=== PATIENT | male | born 1940 | race Caucasian/White ===

== ENCOUNTER 2017-06-20 21:00 | Inpatient (IN) | payer OTHER, MEDICARE ==
[~2017-06-20] VITALS: Ht 175.3 cm; Wt 83.0 kg
--- NOTE | 2017-06-20 20:32 | PD.CONS ---
HPI Service neurosurgeon Consult Requested By Trauma surgeon Reason for Consult T2 fracture Primary Care Physician Non-Staff History of Present Illness Mr Lima is a 76-year-old male who fell from a ladder landing on the ladder with his left side. No loss of consciousness. He did not suffer a significant head injury. No seizure activity reported. No tongue biting. No incontinence of stool or urine. He was evaluated in outside hospital found to have an acute T2 fracture and 3 left-sided rib fractures. He was moving well both upper and lower extremities. No focal weakness. No sensory loss. No problems controlling his sphincters. He was transferred to [place] for definitive care. Upon arrival, he was evaluated by the trauma surgeon. CT was done. Neurosurgical consultation was requested Review of Systems Constitutional: DENIES: Diaphoretic episodes, Fatigue, Fever, Weight gain, Weight loss, Chills, Dizziness, Change in appetite, Night Sweats Endocrine: DENIES: Heat/cold intolerance, Polydipsia, Polyuria, Polyphagia Eyes: DENIES: Blurred vision, Diplopia, Eye inflammation, Eye pain, Vision loss , Photosensitivity, Double Vision Ears, nose, mouth, throat: DENIES: Tinnitus, Hearing loss, Vertigo, Nasal discharge, Oral lesions, Throat pain, Hoarseness, Ear Pain, Running Nose, Epistaxis, Sinus Pain, Toothache, Odynophagia Respiratory: DENIES: Apneas, Cough, Snoring, Wheezing, Hemoptysis, Sputum production, Shortness of breath Cardiovascular: COMPLAINS OF: Chest pain (Left musculoskeletal) Gastrointestinal: DENIES: Abdominal pain, Black stools, Bloody stools, Constipation, Diarrhea, Nausea, Vomiting, Difficulty Swallowing, Anorexia Genitourinary: DENIES: Sexual dysfunction, Urinary frequency, Urinary incontinence, Urgency, Hematuria, Dysuria, Nocturia, Penile Discharge, Testicular Pain, Testicular Swelling Musculoskeletal: COMPLAINS OF: Back pain, DENIES: Joint pain, Muscle aches, Stiffness, Joint Swelling, Neck pain Integumentary: DENIES: Abnormal pigmentation, Nail changes, Pruritus, Rash Hematologic/lymphatic: COMPLAINS OF: Bruising, DENIES: Lymphadenopathy Immunologic/allergic: DENIES: Eczema, Urticaria Neurologic: DENIES: Abnormal gait, Headache, Localized weakness, Paresthesias, Seizures, Speech Problems, Tremor, Poor Balance Psychiatric: DENIES: Anxiety, Confusion, Mood changes, Depression, Hallucinations, Agitation, Suicidal Ideation, Homicidal Ideation, Delusions Past Family Social History Allergies: Coded Allergies: No Known Allergies (Unverified , 06/20/17) Past Medical History Diabetes and hypercholesterolemia Past Surgical History He denies any significant surgical his Reported Medications simvastatin Active Ordered Medications Current Medications Sodium Chloride (NS Flush) 2 ml UNSCH PRN IV FLUSH FLUSH AFTER USING IV ACCESS Last administered on 06/22/17 21:05; Start 06/20/17 at 21:30 Hydromorphone HCl (Dilaudid Pf Inj) 1 mg Q3H PRN IV PUSH BREAKTHROUGH PAIN Last administered on 06/24/17at 00:08; Start 06/20/17 at 21:45 Oxycodone HCl (Roxicodone) 5 mg Q3H PRN PO PAIN SCALE 1 TO 5 Last administered on 06/23/17 11:45; Start 06/20/17 at 21:30 Oxycodone HCl (Roxicodone) 10 mg Q3H PRN PO PAIN SCALE 6 TO 10 Last administered on 06/24/17at 12:41; Start 06/20/17 at 21:30 Enalaprilat (Vasotec Inj) 1.25 mg Q8H PRN IV PUSH SBP>180, DBP>95; Start at 21:30 Ondansetron HCl (Zofran Inj) 4 mg Q6H PRN IV PUSH NAUSEA OR VOMITING Last administered on 06/22/17at 14:02; Start 06/20/17 at 21:30 Enoxaparin Sodium (Lovenox Inj) 30 mg Q12H SQ Last administered on 06/24/17at 09: 39; Start 06/20/17 at 22:00 Docusate Sodium (Colace) 100 mg BID PO ; Start 06/21/17 at 09:00; Stop 06/21/17 at 09:00; Status DC Magnesium Hydroxide (Milk Of Magnesia Liq) 30 ml Q6H PRN PO CONSTIPATION Last administered on 06/21/17 09:17; Start 06/20/17 at 21:30 Miscellaneous Information 1 Q361D XX ; Start 06/20/17 at 21:30 Chlorhexidine Gluconate (Chlorhexidine 2% Cloth) 3 pack Taper DAILY@04 TOP Last administered on 06/23/17at 04:00; Start 06/21/17 at 04:00; Stop 06/17/18 at 03: 59 Chlorhexidine Gluconate (Chlorhexidine 2% Cloth) 3 pack UNSCH PRN TOP HYGIENIC CARE; Start 06/20/17 at 21:30 Dextrose (D50w (Vial) Inj) 50 ml UNSCH PRN IV PUSH HYPOGLYCEMIA-SEE COMMENTS; Start 06/20/17 at 21:30 Glucagon (Glucagon Inj) 1 mg UNSCH PRN OTHER HYPOGLYCEMIA-SEE COMMENTS; Start 06/20/17 at 21:30 Insulin Human Regular (NovoLIN R SUPPLEMENTAL SCALE) 1 ACHS SLIDING SCALE SQ Last administered on 06/22/17at 11:30; Start 06/21/17 at 08:00 Methocarbamol (Robaxin) 500 mg Q8HR PO Last administered on 06/24/17 12:41; Start 06/21/17 at 08:15 Lidocaine HCl (Lidoderm 5% Patch.12 Hr) 1 patch DAILY T-DERMAL Last administered on 06/24/17 09:39; Start 06/21/17 at 09:00 Senna/Docusate Sodium (Brandy-Colace) 1 tab BID PO Last administered on 06/24/17at 09:40; Start 06/21/17 at 09:00 Lactulose (Lactulose Liq) 30 ml DAILY PRN PO No BM in 2 days; Start 06/21/17 at 07:45 Polyethylene Glycol (Miralax) 17 gm DAILY PO Last administered on 06/22/17at 09: 58; Start 06/21/17 at 09:00 Amlodipine Besylate (Norvasc) 5 mg DAILY PO Last administered on 06/24/17 09:40 ; Start 06/21/17 at 09:00 Losartan Potassium (Cozaar) 25 mg DAILY PO Last administered on 06/24/17at 09:41 ; Start 06/21/17 at 09:00 Pantoprazole Sodium (Protonix) 20 mg DAILY PO Last administered on 06/24/17at 09: 40; Start 06/21/17 at 09:00 Pravastatin Sodium (Pravachol) 40 mg DAILY PO Last administered on 06/24/17 09: 41; Start 06/21/17 at 09:00 Citalopram Hydrobromide (CeleXA) 40 mg DAILY PO Last administered on 06/24/17 09:40; Start 06/21/17 at 09:00 Albuterol/ Ipratropium (Duoneb Neb) 1 ampule Q2HR NEB PRN NEB SHORTNESS OF BREATH Last administered on 06/22/17 04:34; Start 06/21/17 at 07:45 Albuterol/ Ipratropium (Duoneb Neb) 1 ampule Q4HR WHILE AWAKE NEB NEB Last administered on 06/24/17 08:22; Start 06/21/17 at 14:00; Stop 06/24/17 at 09:27; Status DC Sodium Chloride 1,000 ml @ 100 mls/hr Q10H IV Last administered on 06/24/17 02 :34; Start 06/22/17 at 12:00; Stop 06/24/17 at 09:25; Status DC Fentanyl (Duragesic 50 Mcg Patch.72 Hr) 1 patch Q3D T-DERMAL Last administered on 06/22/17 13:00; Start 06/22/17 at 13:00 Miscellaneous Information 1 Q3D T-DERMAL Last administered on 06/22/17at 13:00; Start 06/22/17 at 13:00 Gabapentin (Neurontin) 300 mg TID PO Last administered on 06/24/17 12:41; Start 06/23/17 at 13:00 Furosemide (Lasix Inj) 20 mg BID@09,18 IV PUSH ; Start 06/24/17 at 18:00; Stop at 09:01 Albuterol/ Ipratropium (Duoneb Neb) 1 ampule Q4HR NEB NEB Last administered on 06/24/17 11:21; Start 06/24/17 at 12:00 Family History Social History Patient is a smoker denies alcohol or illegal drug use Physical Exam Physical Exam Alert and oriented, in obvious pain Head is atraumatic normocephalic pupils equal round reactive to light extraocular movement intact sclera nonicteric conjunctiva pink Neck soft, trachea midline, no tenderness to cervical palpation Lungs clear to auscultation bilaterally, left chest wall tenderness Abdomen soft nontender nondistended Pelvis stable and nontender, femoral pulses palpable bilaterally No clubbing cyanosis or edema, distal pulses are palpable bilaterally Mood and affect are appropriate Cranial nerve examination: pupils to be equal, round and reactive to light. Extra-ocular movements are intact. Facial motor and sensory function are normal and symmetrical. Gross hearing appears intact. Sternocleidomastoid and trapezius muscles are symmetrical. Other cranial nerves are intact. Neck is soft and supple with a good range of motion without pain. Muscle strength is normal in all muscle groups of both upper and lower extremities. Sensory examination is intact to light touch and pin prick in both the upper and lower extremities. Deep tendon reflexes are symmetrical in both upper and lower extremities. There is a bilateral plantar flexion response. Cerebellar examination is unremarkable, without deficits. Attending Statement 76-year-old man who fell fracturing 3 left-sided ribs and T2 vertebral body I reviewed his radiological studies MRI Thoracic spine. compression fracture of the T3 superior endplate with prominent approximately 5 mm retropulsion of the posterior cortex. There is diffuse bone marrow edema in the T3 vertebral body. There is resultant complete effacement of the anterior thecal sac with flattening of the cervical cord. There is no abnormal cord signal at this level. ALIGNMENT: Normal. CORD: Subtle prominence of the central canal, approximately 1-2 mm, at C5- 7. Otherwise, no significant signal abnormality. T1-T2: Normal. T2-T3: The thecal sac has a normal diameter. No evidence of disc bulge or protrusion. T3-T4: The thecal sac has a normal diameter. No evidence of disc bulge or protrusion. T4-T5: The thecal sac has a normal diameter. No evidence of disc bulge or protrusion. T5-T6: The thecal sac has a normal diameter. No evidence of disc bulge or protrusion. T6-T7: The thecal sac has a normal diameter. No evidence of disc bulge or protrusion. T7-T8: The thecal sac has a normal diameter. No evidence of disc bulge or protrusion. T8-T9: The thecal sac has a normal diameter. No evidence of disc bulge or protrusion. T9-T10: The thecal sac has a normal diameter. No evidence of disc bulge or protrusion. T10-T11: The thecal sac has a normal diameter. No evidence of disc bulge or protrusion. T11-T12: The thecal sac has a normal diameter. No evidence of disc bulge or protrusion. T12-L1: The thecal sac has a normal diameter. No evidence of disc bulge or protrusion. MRI lumbar spine T12-L1: The thecal sac has a normal diameter. No evidence of disc bulge or protrusion. The neural foramina are patent bilaterally. L1-L2: The thecal sac has a normal diameter. No evidence of disc bulge or protrusion. The neural foramina are patent bilaterally. L2-L3: The thecal sac has a normal diameter. No evidence of disc bulge or protrusion. The neural foramina are patent bilaterally. L3-L4: Broad-based disc bulge slightly more prominent left posterior and posterior lateral measuring approximately 5 mm in depth. In addition, there is some ligamentum flavum/facet hypertrophy leftward and accommodation there is lateral recess and appears to compromise the nerve rootlets of L4 as they move laterally. Otherwise, the spinal canal and neural foramina are adequate. L4-L5: Bilateral facet hypertrophy. There is narrowing of the right neural foramina with obliteration of the epidural fat around the right L4 nerve root and likely compromise of the right L4 dermatome. Spinal canal and left neural foramina are adequate L5-S1: Predominantly right facet hypertrophy. Spinal canal and neural foramina remain patent CONCLUSION: 1. Multilevel degenerative disease with some loss of disc height disc desiccation from L1-2 through L4-5 with relative sparing at the lumbosacral junction. 2. Broad-based disc bulge at L3-4 slightly more prominent leftward. In combination with left-sided ligamentum flavum and facet hypertrophy, there is encroachment of the lateral recess which appears to compromise the left nerve rootlets of L4 as they move laterally. 3. Predominantly due to facet hypertrophy, narrowing the right neural foramen at L4-5 which appear severe enough to compromise the right L4 nerve root. 4. Spinal canal and neural foramina appear to be adequate all remaining levels. Continue neuro checks in a serial fashion. A follow-up upright radiological study is recommended. He does not have any focal neurological deficit or clinical evidence of myelopathy. I discussed with him the alternatives of treatment and explained to him that a surgical procedure should be a last resort. Recommend a stabilization of the thoracic spine with a TLSO brace. If there is further collapse of the vertebral body, he may need to undergo surgical procedure with an open reduction and internal fixation Pulmonary. Respiratory failure related to rib fractures, aggressive pulmonary toilette, nasotracheal suction, and breathing treatments with nebulizers. Renal. monitor closely urine output, BUN and creatinine Endocrine. Monitor serial Acu checks and SSI as needed in detail ID monitor for signs of infection Diabetic diet with regular insulin sliding scale before meals and at bedtime coverage Protonix for stress ulcer prophylaxis Jeff hose and SCD's for DVT prophylaxis. Caprini VTE Risk Assessment Caprini VTE Risk Assessment: Mod/High Risk (score >= 2) Caprini Risk Assessment Model Point Value = 1 Point Value = 2 Point Value = 3 Point Value = 5 Age 41-60 Minor surgery BMI > 25 kg/m2 Swollen legs Varicose veins or History of unexplained or recurrent spontaneous Oral contraceptives or hormone replacement Sepsis (< 1 month) Serious lung disease, including pneumonia (< 1 month) Abnormal pulmonary function Acute myocardial infarction Congestive heart failure (< 1 month) History of inflammatory bowel disease Medical patient at bed rest Age 61-74 Arthroscopic surgery Major open surgery (> 45 min) Laparoscopic surgery (> 45 min) Malignancy Confined to bed (> 72 hours) Immobilizing plaster cast Central venous access Age >= 75 History of VTE Family history of VTE Factor V Leiden Prothrombin [id number] Lupus anticoagulant Anticardiolipin antibodies Elevated serum homocysteine Heparin-induced thrombocytopenia Other congenital or acquired thrombophilia Stroke (< 1 month) Elective arthroplasty Hip, pelvis, or leg fracture Acute spinal cord injury (< 1 month) Prophylaxis Regimen Total Risk Factor Score Risk Level Prophylaxis Regimen 0-1 Low Early ambulation 2 Moderate Order ONE of the following: *Sequential Compression Device (SCD) *Heparin 5000 units SQ BID 3-4 Higher Order ONE of the following medications: *Heparin 5000 units SQ TID *Enoxaparin/Lovenox 40 mg SQ daily (WT < 150 kg, CrCl > 30 mL/min) *Enoxaparin/Lovenox 30 mg SQ daily (WT < 150 kg, CrCl > 10-29 mL/min) *Enoxaparin/Lovenox 30 mg SQ BID (WT < 150 kg, CrCl > 30 mL/min) AND/OR *Sequential Compression Device (SCD) 5 or more Highest Order ONE of the following medications: *Heparin 5000 units SQ TID (Preferred with Epidurals) *Enoxaparin/Lovenox 40 mg SQ daily (WT < 150 kg, CrCl > 30 mL/min) *Enoxaparin/Lovenox 30 mg SQ daily (WT < 150 kg, CrCl > 10-29 mL/min) *Enoxaparin/Lovenox 30 mg SQ BID (WT < 150 kg, CrCl > 30 mL/min) AND *Sequential Compression Device (SCD) Steve Vidal MD Jun 20, 2017 20:32
[~2017-06-20 21:00] MED LIST: AMLO5TAB2 PO; CITA40TA4 PO; LOSA25TA PO; NOVOINJ2 SQ; OMEP20TA93 PO; SIMV20TA PO
[2017-06-20 21:14] VITALS: BP 124/66; PULSE 96; RESP 19; TEMP 98.7; O2SAT 92
[2017-06-20] MEDS ORDERED: MISCELLANEOUS NURSING INFORMATION XX SCH (21:30)
[2017-06-20] MEDS ORDERED: GLUCAGON 1 MG/ML VIAL OTHER PRN (21:30)
[2017-06-20] MEDS ORDERED: MAGNESIUM HYDROXIDE SUSP 30 ML CUP PO PRN (21:30)
[2017-06-20] MEDS ORDERED: DEXTROSE 50% IN WATER 50 ML VIAL(D50) IV PUSH PRN (21:30)
[2017-06-20] MEDS ORDERED: CHLORHEXIDINE GLUCONATE 2 % 1 PACK (2 CLOTHS) TOP PRN (21:30)
[2017-06-20] MEDS ORDERED: ENALAPRILAT 1.25 MG/ML VIAL IV PUSH PRN (21:30)
[2017-06-20] MEDS ORDERED: ONDANSETRON HCL 4 MG/2 ML VIAL IV PUSH PRN (21:30)
--- NOTE | 2017-06-20 21:32 | HHI.HP ---
[facility] Service Critical Care Medicine Primary Care Physician Unknown Admission Diagnosis Diagnosis: Chief Complaint: Back pain Travel History International Travel<30 Days: No Contact w/Intl Traveler <30 Da: No Traveled to Known Affected Are: No History of Present Illness 76-year-old gentleman who fell from a ladder landing on the ladder with his left side. He was evaluated in outside hospital found to have an acute T2 fracture and 3 left-sided rib fractures. He was transferred to [place] for definitive care Review of Systems Constitutional: DENIES: Diaphoretic episodes, Fatigue, Fever, Weight gain, Weight loss, Chills, Dizziness, Change in appetite, Night Sweats Endocrine: DENIES: Heat/cold intolerance, Polydipsia, Polyuria, Polyphagia Eyes: DENIES: Blurred vision, Diplopia, Eye inflammation, Eye pain, Vision loss , Photosensitivity, Double Vision Ears, nose, mouth, throat: DENIES: Tinnitus, Hearing loss, Vertigo, Nasal discharge, Oral lesions, Throat pain, Hoarseness, Ear Pain, Running Nose, Epistaxis, Sinus Pain, Toothache, Odynophagia Respiratory: DENIES: Apneas, Cough, Snoring, Wheezing, Hemoptysis, Sputum production, Shortness of breath Cardiovascular: COMPLAINS OF: Chest pain (Left musculoskeletal) Gastrointestinal: DENIES: Abdominal pain, Black stools, Bloody stools, Constipation, Diarrhea, Nausea, Vomiting, Difficulty Swallowing, Anorexia Genitourinary: DENIES: Sexual dysfunction, Urinary frequency, Urinary incontinence, Urgency, Hematuria, Dysuria, Nocturia, Penile Discharge, Testicular Pain, Testicular Swelling Musculoskeletal: COMPLAINS OF: Back pain, DENIES: Joint pain, Muscle aches, Stiffness, Joint Swelling, Neck pain Integumentary: DENIES: Abnormal pigmentation, Nail changes, Pruritus, Rash Hematologic/lymphatic: COMPLAINS OF: Bruising, DENIES: Lymphadenopathy Immunologic/allergic: DENIES: Eczema, Urticaria Neurologic: DENIES: Abnormal gait, Headache, Localized weakness, Paresthesias, Seizures, Speech Problems, Tremor, Poor Balance Psychiatric: DENIES: Anxiety, Confusion, Mood changes, Depression, Hallucinations, Agitation, Suicidal Ideation, Homicidal Ideation, Delusions Past Family Social History Allergies: Coded Allergies: No Known Allergies (Unverified , 06/20/17) Past Medical History Diabetes and hypercholesterolemia Past Surgical History Patient denies any significant surgical history Reported Medications Patient takes insulin he is unsure of the dose and simvastatin Family History Reviewed and not relevant Social History Patient is a smoker denies alcohol and illegal drug use Physical Exam Vital Signs Vital Signs Date Time Temp Pulse Resp B/P (MAP) Pulse Ox O2 Delivery O2 Flow Rate FiO2 06/20/17 21:25 Nasal Cannula 2.00 Physical Exam Alert and oriented, in obvious pain but no real distress Head is atraumatic normocephalic pupils equal round reactive to light extraocular movement intact sclera nonicteric conjunctiva pink Neck soft, trachea midline, no tenderness to cervical palpation Lungs clear to auscultation bilaterally, left chest wall tenderness Abdomen soft nontender nondistended Pelvis stable and nontender, femoral pulses palpable bilaterally No clubbing cyanosis or edema, distal pulses are palpable bilaterally Mood and affect are appropriate Cranial nerves II through XII appear grossly intact Caprini VTE Risk Assessment Caprini VTE Risk Assessment: Mod/High Risk (score >= 2) Caprini Risk Assessment Model Point Value = 1 Point Value = 2 Point Value = 3 Point Value = 5 Age 41-60 Minor surgery BMI > 25 kg/m2 Swollen legs Varicose veins or History of unexplained or recurrent spontaneous Oral contraceptives or hormone replacement Sepsis (< 1 month) Serious lung disease, including pneumonia (< 1 month) Abnormal pulmonary function Acute myocardial infarction Congestive heart failure (< 1 month) History of inflammatory bowel disease Medical patient at bed rest Age 61-74 Arthroscopic surgery Major open surgery (> 45 min) Laparoscopic surgery (> 45 min) Malignancy Confined to bed (> 72 hours) Immobilizing plaster cast Central venous access Age >= 75 History of VTE Family history of VTE Factor V Leiden Prothrombin [id number] Lupus anticoagulant Anticardiolipin antibodies Elevated serum homocysteine Heparin-induced thrombocytopenia Other congenital or acquired thrombophilia Stroke (< 1 month) Elective arthroplasty Hip, pelvis, or leg fracture Acute spinal cord injury (< 1 month) Prophylaxis Regimen Total Risk Factor Score Risk Level Prophylaxis Regimen 0-1 Low Early ambulation 2 Moderate Order ONE of the following: *Sequential Compression Device (SCD) *Heparin 5000 units SQ BID 3-4 Higher Order ONE of the following medications: *Heparin 5000 units SQ TID *Enoxaparin/Lovenox 40 mg SQ daily (WT < 150 kg, CrCl > 30 mL/min) *Enoxaparin/Lovenox 30 mg SQ daily (WT < 150 kg, CrCl > 10-29 mL/min) *Enoxaparin/Lovenox 30 mg SQ BID (WT < 150 kg, CrCl > 30 mL/min) AND/OR *Sequential Compression Device (SCD) 5 or more Highest Order ONE of the following medications: *Heparin 5000 units SQ TID (Preferred with Epidurals) *Enoxaparin/Lovenox 40 mg SQ daily (WT < 150 kg, CrCl > 30 mL/min) *Enoxaparin/Lovenox 30 mg SQ daily (WT < 150 kg, CrCl > 10-29 mL/min) *Enoxaparin/Lovenox 30 mg SQ BID (WT < 150 kg, CrCl > 30 mL/min) AND *Sequential Compression Device (SCD) Assessment and Plan Assessment and Plan 76-year-old man who fell fracturing 3 left-sided ribs and T2 vertebral body -Admit to trauma service for pain control and pulmonary toilet -Dr. Vidal has been consulted from neurosurgery to evaluate a T2 fracture -We will maintain patient in bed rest -Diabetic diet with regular insulin sliding scale before meals and at bedtime coverage -Patient's is bringing his list of home medications and will resume once confirmed Fritz Fritz MD Jun 20, 2017 21:32
[2017-06-20] MEDS: ENOXAPARIN SODIUM 30 MG/0.3 ML SYRINGE SQ SCH (21:53)
[2017-06-20 23:25] VITALS: BP 112/85; PULSE 91; RESP 19; TEMP 98; O2SAT 93
[2017-06-21] VITALS (8 sets, daily range): BP systolic 98–129; BP diastolic 54–77; PULSE 76–91; RESP 20; TEMP 97.2–98.4; O2SAT 85–95
[2017-06-21] MEDS: CHLORHEXIDINE GLUCONATE 2 % 1 PACK (2 CLOTHS) TOP SCH ×2 (04:00→21:31)
--- NOTE | 2017-06-21 06:45 | RADRPT ---
EXAM DATE/TIME: 06/21/2017 06:00 [facility] COMPARISON: No previous studies available for comparison. INDICATIONS : Fell off ladder yesterday and hit left side on ladder, pain left chest, back and ribs MEDICAL HISTORY : Hypertension. SURGICAL HISTORY : Abdominal aortic aneurysm repair. ENCOUNTER: Subsequent ACUITY: 2 days PAIN SCORE: 10/10 LOCATION: Left chest FINDINGS: Single AP view of the chest. Lungs are grossly clear. No evidence of pleural effusion or pneumothorax . Cardiomediastinal silhouette within normal limits. CONCLUSION: No acute cardiopulmonary disease identified. Pascual Ramires MD on June 21, 2017 at 6:41 Board Certified Radiologist. This report was verified electronically.
[2017-06-21] MEDS ORDERED: RESP: ALBUTEROL 2.5 MG/IPRATROPIUM 0.5 MG NEB (PRN) NEB (07:45)
[2017-06-21] MEDS: INSULIN NovoLIN REGULAR SUPPLEMENTAL SCALE SQ SCH ×4 (08:00→21:00)
[2017-06-21] MEDS: METHOCARBAMOL 500 MG TAB PO SCH ×3 (08:15→21:31)
[2017-06-21] MEDS ORDERED: DOCUSATE SODIUM 100 MG CAP PO SCH (09:00)
[2017-06-21] MEDS: LIDOCAINE HCL 5% PATCH T-DERMAL SCH (09:00)
[2017-06-21] MEDS: POLYETHYLENE GLYCOL 17 GM PKG PO SCH (09:00)
[2017-06-21] MEDS: LOSARTAN 25 MG TAB PO SCH (09:18)
[2017-06-21] MEDS: DOCUSATE SODIUM 50 MG/SENNA 8.6 MG TAB PO SCH ×2 (09:19→21:31)
[2017-06-21] MEDS: CITALOPRAM HYDROBROMIDE 40 MG TAB PO SCH (09:19)
[2017-06-21] MEDS: PRAVASTATIN SOD 40 MG TAB PO SCH (09:19)
[2017-06-21] MEDS: PANTOPRAZOLE SOD 20 MG DELAYED RELEASE TAB PO SCH (09:19)
[2017-06-21] MEDS: amLODIPine BESYLATE 5 MG TAB PO SCH (09:19)
[2017-06-21] MEDS: ENOXAPARIN SODIUM 30 MG/0.3 ML SYRINGE SQ SCH ×2 (09:20→21:31)
--- NOTE | 2017-06-21 10:15 | HHI.PR ---
Subjective Subjective Notes Complains of left rib pain Awaiting neurosurgery plan Objective Vitals/I&O Vital Signs Date Time Temp Pulse Resp B/P (MAP) Pulse Ox O2 Delivery O2 Flow Rate FiO2 06/21/17 09:24 Nasal Cannula 5.00 06/20/17 23:25 98.0 91 19 112/85 (94) 93 Radiology Last Impressions Chest X-Ray 06/21/17 0000 Signed Impressions: Service Date/Time: Wednesday, June 21, 2017 06:00 - CONCLUSION: No acute cardiopulmonary disease identified. Pascual Ramires MD Narrative Exam GENERAL: 76-year-old well-nourished, well developed male lying in bed in no acute distress. SKIN: Warm and dry. HEAD: Normocephalic. EYES: Pupils equal and round. No scleral icterus. ENT: No nasal bleeding or discharge. Mucous membranes pink and moist. NECK: Trachea midline. No JVD. CARDIOVASCULAR: Regular rate and rhythm. RESPIRATORY: No accessory muscle use. Lungs clear and diminished to auscultation. Breath sounds equal bilaterally. GASTROINTESTINAL: Abdomen soft, non-tender, nondistended. + BS. MUSCULOSKELETAL: Extremities without cyanosis, +1 RUE edema. MAEW, + perfused NEUROLOGICAL: Awake and alert. Normal speech. A/P Assessment and Plan [place]: Fell off a ladder from unknown height landing on his left side. No LOC. Transferred for trauma services. INJURIES: LEFT rib fxs LEFT pulmonary contusion T2 fx PMHx: DM, HLD, tobacco use, HTN, depression LEFT rib fxs, LEFT pulmonary contusion Supportive care Pulmonary toileting Pain control Bowel regimen 06/21: CXR- no acute dx T2 fx Neurosurgery consulted Awaiting plan of care MRI today Pain control Plan of care discussed with patient and family at bedside. Collaborating trauma Darline agrees with plan. Case management consulted to assist with discharge planning. Attending Statement patient seen at bedside, as above await nsg recs f/u MRI increased O2 Requirement obtain ABG, CXR- possible transfer to ICU for bipap and close resp monitoring Collaborating MD Comments The exam, history, and the medical decision-making described in the above note were completed with the assistance of the mid-level provider. I reviewed and agree with the findings presented. I attest that I had a [id number] encounter with the patient on the same day, and personally performed and documented my assessment and findings in the medical record. Lizett Jackson Jun 21, 2017 10:15 Marito Herrera MD Jun 25, 2017 13:25
[2017-06-21] MEDS: RESP: ALBUTEROL 2.5 MG/IPRATROPIUM 0.5 MG NEB (SCH) NEB ×3 (14:00→19:00)
--- NOTE | 2017-06-21 16:43 | RADRPT ---
EXAM DATE/TIME: 06/21/2017 15:13 [facility] COMPARISON: CT THORACIC SPINE W CONTRAST, June 20, 2017, 17:13. CT THORAX W CONTRAST, A pri2017, 17:13. INDICATIONS : Pain. MEDICAL HISTORY : Hypertension. Diabetes mellitus type 2. SURGICAL HISTORY : IVC Filter placement. Biliary stent. ENCOUNTER: Initial ACUITY: 1 day PAIN SCORE: 5/10 LOCATION: Paraspinal TECHNIQUE: Multiplanar multisequence MRI of the thoracic spine was performed. FINDINGS: VERTEBRA: Redemonstration of moderate compression fracture of the T3 superior endplate with promi nent approximately 5 mm retropulsion of the posterior cortex. There is diffuse bone marrow edema in t he T3 vertebral body. There is resultant complete effacement of the anterior thecal sac with flatteni ng of the cervical cord. There is no abnormal cord signal at this level. ALIGNMENT: Normal. CORD: Subtle prominence of the central canal, approximately 1-2 mm, at C5-7. Otherwise, no signif icant signal abnormality. T1-T2: Normal. T2-T3: The thecal sac has a normal diameter. No evidence of disc bulge or protrusion. T3-T4: The thecal sac has a normal diameter. No evidence of disc bulge or protrusion. T4-T5: The thecal sac has a normal diameter. No evidence of disc bulge or protrusion. T5-T6: The thecal sac has a normal diameter. No evidence of disc bulge or protrusion. T6-T7: The thecal sac has a normal diameter. No evidence of disc bulge or protrusion. T7-T8: The thecal sac has a normal diameter. No evidence of disc bulge or protrusion. T8-T9: The thecal sac has a normal diameter. No evidence of disc bulge or protrusion. T9-T10: The thecal sac has a normal diameter. No evidence of disc bulge or protrusion. T10-T11: The thecal sac has a normal diameter. No evidence of disc bulge or protrusion. T11-T12: The thecal sac has a normal diameter. No evidence of disc bulge or protrusion. T12-L1: The thecal sac has a normal diameter. No evidence of disc bulge or protrusion. CONCLUSION: 1. Moderate acute compression fracture of the T3 superior endplate with prominent, approximately 5 mm , retropulsion of the posterior cortex resulting in complete effacement of the anterior thecal sac an d flattening of the cervical cord without cord edema. 2. Subtle prominence of the central cervical cord canal at C5-7. This is generally considered benign. Followup MRI examination may be performed to document stability as clinically appropriate. Abdulkadir Marte MD on June 21, 2017 at 16:13 Board Certified Radiologist. This report was verified electronically.
--- NOTE | 2017-06-21 16:51 | RADRPT ---
EXAM DATE/TIME: 06/21/2017 15:13 [facility] COMPARISON: No previous studies available for comparison. INDICATIONS : Pain. MEDICAL HISTORY : Hypertension. Diabetes mellitus type 2. SURGICAL HISTORY : IVC Filter placement. Biliary stent. ENCOUNTER: Initial ACUITY: 1 day PAIN SCORE: 5/10 LOCATION: Paraspinal TECHNIQUE: Multiplanar multisequence MRI of the lumbar spine was performed without contrast. FINDINGS: The most caudal appearing lumbar vertebra is numbered as L5. Sagittal T1, T2 and inversion recovery images show multilevel degenerative disc disease with some los s of disc height and disc desiccation just about every lumbar level with relative sparing at the lumb osacral junction. There is a broad-based disc bulge at L3-4 which is slightly more prominent leftward measuring approximately 5 mm in depth. In combination with some posterior element hypertrophy, there is some encroachment on the left lateral recess at this level. Mild posterior element hypertrophy at L4-5 but the spinal canal appears to be adequate at this and all additional remaining lumbar levels. T12-L1: The thecal sac has a normal diameter. No evidence of disc bulge or protrusion. The neural foramina are patent bilaterally. L1-L2: The thecal sac has a normal diameter. No evidence of disc bulge or protrusion. The neural foramina are patent bilaterally. L2-L3: The thecal sac has a normal diameter. No evidence of disc bulge or protrusion. The neural foramina are patent bilaterally. L3-L4: Broad-based disc bulge slightly more prominent left posterior and posterior lateral measuring approxi mately 5 mm in depth. In addition, there is some ligamentum flavum/facet hypertrophy leftward and acc ommodation there is lateral recess and appears to compromise the nerve rootlets of L4 as they move la terally. Otherwise, the spinal canal and neural foramina are adequate. L4-L5: Bilateral facet hypertrophy. There is narrowing of the right neural foramina with obliteration of the epidural fat around the right L4 nerve root and likely compromise of the right L4 dermatome. Spinal canal and left neural foramina are adequate L5-S1: Predominantly right facet hypertrophy. Spinal canal and neural foramina remain patent CONCLUSION: 1. Multilevel degenerative disease with some loss of disc height disc desiccation from L1-2 through L 4-5 with relative sparing at the lumbosacral junction. 2. Broad-based disc bulge at L3-4 slightly more prominent leftward. In combination with left-sided li gamentum flavum and facet hypertrophy, there is encroachment of the lateral recess which appears to c ompromise the left nerve rootlets of L4 as they move laterally. 3. Predominantly due to facet hypertrophy, narrowing the right neural foramen at L4-5 which appear se tomasa enough to compromise the right L4 nerve root. 4. Spinal canal and neural foramina appear to be adequate all remaining levels. Sampson Ibarra MD on June 21, 2017 at 16:38 Board Certified Radiologist. This report was verified electronically.
[2017-06-22] VITALS (9 sets, daily range): BP systolic 94–127; BP diastolic 56–67; PULSE 73–84; RESP 13–20; TEMP 97.2–98.1; O2SAT 93–95
[2017-06-22] MEDS: METHOCARBAMOL 500 MG TAB PO SCH ×3 (06:16→21:05)
--- NOTE | 2017-06-22 06:22 | RADRPT ---
EXAM DATE/TIME: 06/22/2017 04:47 [facility] COMPARISON: CHEST SINGLE AP, June 21, 2017, 6:00. INDICATIONS : Respiratory distress MEDICAL HISTORY : Hypertension SURGICAL HISTORY : Abdominal aortic aneurysm repair. ENCOUNTER: Initial ACUITY: 1 day PAIN SCORE: 10/10 LOCATION: Bilateral chest FINDINGS: Single AP view of the chest. Tortuous thoracic aorta. Subsegmental atelectasis at the left lung base. Lungs otherwise clear. No evidence of pleural effusion or pneumothorax. CONCLUSION: Mild left lung base subsegmental atelectasis. Pascual Ramires MD on June 22, 2017 at 6:20 Board Certified Radiologist. This report was verified electronically.
[2017-06-22] MEDS: HYDROmorphone HCL PF 2 MG/ML VIAL IV PUSH PRN ×3 (06:54→23:52)
[2017-06-22] MEDS: RESP: ALBUTEROL 2.5 MG/IPRATROPIUM 0.5 MG NEB (SCH) NEB ×4 (07:51→20:15)
[2017-06-22] MEDS: INSULIN NovoLIN REGULAR SUPPLEMENTAL SCALE SQ SCH ×4 (08:00→21:00)
[2017-06-22 08:12] LABS: AUTOMATED NEUTROPHIL # 12.6 TH/MM3 (1.8-7.7); BASOPHIL # 0.1 TH/MM3 (0-0.2); BASOPHIL % 0.3 % (0.0-2.0); EOSINOPHIL % 0.1 % (0.0-4.0); HEMATOCRIT 42.1 % (39.0-51.0); HEMOGLOBIN 13.9 GM/DL (13.0-17.0); LYMPHOCYTE # 0.9 TH/MM3 (1.0-4.8); MEAN CORPUSCULAR HEMOGLOBIN 27.7 PG (27.0-34.0); MEAN PLATELET VOLUME 7.9 FL (7.0-11.0); MONO % 12.4 % (0.0-8.0); MONOCYTE # 1.9 TH/MM3 (0-0.9); NEUT % 81.2 % (16.0-70.0); PLATELET COUNT 190 TH/MM3 (150-450); RED BLOOD COUNT 5.02 MIL/MM3 (4.50-5.90); WHITE BLOOD COUNT 15.5 TH/MM3 (4.0-11.0)
[2017-06-22 08:36] LABS: BICARBONATE 25.1 MEQ/L (21.0-32.0); CALCIUM 8.8 MG/DL (8.5-10.1); CREATININE 2.49 MG/DL (0.60-1.30)
[2017-06-22] MEDS: LOSARTAN 25 MG TAB PO SCH (09:00)
[2017-06-22] MEDS: CITALOPRAM HYDROBROMIDE 40 MG TAB PO SCH (09:00)
[2017-06-22] MEDS: amLODIPine BESYLATE 5 MG TAB PO SCH (09:00)
[2017-06-22] MEDS: PANTOPRAZOLE SOD 20 MG DELAYED RELEASE TAB PO SCH (09:57)
[2017-06-22] MEDS: PRAVASTATIN SOD 40 MG TAB PO SCH (09:58)
[2017-06-22] MEDS: POLYETHYLENE GLYCOL 17 GM PKG PO SCH (09:58)
[2017-06-22] MEDS: DOCUSATE SODIUM 50 MG/SENNA 8.6 MG TAB PO SCH ×2 (09:58→21:05)
[2017-06-22] MEDS: ENOXAPARIN SODIUM 30 MG/0.3 ML SYRINGE SQ SCH ×2 (09:59→21:06)
[2017-06-22] MEDS: LIDOCAINE HCL 5% PATCH T-DERMAL SCH (09:59)
[2017-06-22] MEDS: SODIUM CHLOR 0.9% 1000 ML INJ 1,000 ML IV SCH ×2 (11:48→21:05)
--- NOTE | 2017-06-22 12:27 | PD.CONS ---
[facility] Service Critical Care Medicine Consult Requested By Dr. Herrera Reason for Consult Respiratory Distress Primary Care Physician Unknown History of Present Illness Patient fell from ladder injuring left side. T2 fracture and 3 left rib fractures. His complains of him having a distended abdomen but he feels it is no different than normal. He is alert and conversant and has no specific complaints aside from mild shortness of breath. His chest x-ray is notable for small lung volumes and basilar atelectasis. I suspect this is simply shallow breathing limited by pain. Review of Systems Respiratory: COMPLAINS OF: Shortness of breath Past Family Social History Allergies: Coded Allergies: No Known Allergies (Unverified , 06/20/17) Physical Exam Vital Signs Vital Signs Date Time Temp Pulse Resp B/P (MAP) Pulse Ox O2 Delivery O2 Flow Rate FiO2 06/22/17 12:00 97.4 84 13 112/56 (74) 95 06/22/17 08:00 95 Bi-Pap 75 06/22/17 08:00 97.7 84 15 94/58 (70) 95 06/22/17 07:52 94 BiPAP 75 06/22/17 07:52 94 75 06/22/17 06:50 94 60 06/22/17 03:40 97.2 84 20 113/59 (77) 93 06/21/17 23:15 97.2 88 20 105/57 (73) 92 06/21/17 21:24 95 Non-Rebreather 12.00 06/21/17 21:23 95 Non-Rebreather 06/21/17 21:19 Non-Rebreather 06/21/17 20:50 88 Venturi Mask 6.00 50 06/21/17 20:45 87 Nasal Cannula 5.00 06/21/17 20:30 85 Nasal Cannula 5.00 06/21/17 20:30 98.2 87 20 113/58 (76) 06/21/17 17:05 Nasal Cannula 4.00 06/21/17 16:25 91 Nasal Cannula 3.00 06/21/17 16:00 98.0 76 20 98/54 (69) 91 Physical Exam General: Alert. Head: Atraumatic Neck: Supple, soft, trachea midline, airway widely patent, no obstruction or stridor Lungs: Clear to auscultation bilaterally, left chest wall tender. Respiratory volumes limited by pain. Heart: Regular rhythm, normal S1-S2, no jugular venous distention Abdomen: Soft nontender nondistended, no guarding or peritoneal irritation, bowel sounds present. Extremities: No clubbing cyanosis or edema, distal pulses are palpable bilaterally, all 4 limbs warm and well perfused Neuro: Oriented 3, alert, cooperative. Conversant. Moves 4 limbs to command. Laboratory Laboratory Tests Test 06/22/17 04:21 06/22/17 07:46 Blood Gas Puncture Site RT RADIAL Blood Gas Patient Temperature 98.6 Blood Gas HCO3 26 Blood Gas Base Excess -0.5 Blood Gas Oxygen Saturation 89 Arterial Blood pH 7.28 Arterial Blood Partial Pressure CO2 57 Arterial Blood Partial Pressure O2 65 Arterial Blood Oxygen Content 17.6 Arterial Blood Carboxyhemoglobin 1.1 Arterial Blood Methemoglobin 1.1 Blood Gas Hemoglobin 14.0 Oxygen Delivery Device Non-Rebreathing Mask Blood Gas Inspired Oxygen 100 White Blood Count 15.5 Red Blood Count 5.02 Hemoglobin 13.9 Hematocrit 42.1 Mean Corpuscular Volume 84.0 Mean Corpuscular Hemoglobin 27.7 Mean Corpuscular Hemoglobin Concent 33.0 Red Cell Distribution Width 15.0 Platelet Count 190 Mean Platelet Volume 7.9 Neutrophils (%) (Auto) 81.2 Lymphocytes (%) (Auto) 6.0 Monocytes (%) (Auto) 12.4 Eosinophils (%) (Auto) 0.1 Basophils (%) (Auto) 0.3 Neutrophils # (Auto) 12.6 Lymphocytes # (Auto) 0.9 Monocytes # (Auto) 1.9 Eosinophils # (Auto) 0.0 Basophils # (Auto) 0.1 CBC Comment DIFF FINAL Differential Comment Blood Urea Nitrogen 50 Creatinine 2.49 Random Glucose 202 Calcium Level 8.8 Sodium Level 138 Potassium Level 4.9 Chloride Level 104 Carbon Dioxide Level 25.1 Anion Gap 9 Estimat Glomerular Filtration Rate 25 Result Diagram: 06/22/17 0746 06/22/17 0746 Assessment and Plan Assessment and Plan Assessment: 1. Hypoxemic respiratory failure with mild CO2 retention 2. Left sided rib fractures 3. Bilateral decreased lung volumes, atelectasis 4. Possible thoracic vertebral body fracture Plan: 1. BiPAP noninvasive ventilation 2. Maintain O2 saturation between 89 and 94% 3. Incentive spirometry to encourage lung expansion 4. Bronchodilators scheduled every 6 hours and every 2 hours as needed wheezing 5. Head of bed up at least 30 6. Convert noninvasive ventilation tube as needed after first 12 hours Overall impression: This man fell from a considerable high and his developed respiratory splinting related to 3 rib fractures on the left side. His lung volumes are small on chest x-ray confirming his shallow inspiratory effort. We will work diligently to get his lung volumes expanded and his distal airways recruited. Geo Manriquez MD Jun 22, 2017 12:27
[2017-06-22] MEDS: REMOVE OLD PATCH T-DERMAL SCH (13:00)
[2017-06-22] MEDS: fentaNYL 50 MCG/HR PATCH T-DERMAL SCH (13:00)
--- NOTE | 2017-06-22 14:27 | HHI.NSPN ---
(Osvaldo Hughes) History Chief Complaint: Left rib pain. (Osvaldo Hughes) Interval History 76-year-old gentleman who fell from a ladder landing on the ladder with his left side. He was evaluated in outside hospital found to have an acute T2 fracture and 3 left-sided rib fractures. He was transferred to [place] for definitive care. MRI of the thoracic and lumbar spine reveal a T3 fracture. Pt complains of left sided rib pain. He complains of back pain but mostly lower back and left sided rib pain. (sOvaldo Hughes) Review of Systems General: Negative for: fever, chills, insomnia Respiratory: Positive for: shortness of breath (Pt on O2 via mask), Negative for: cough, sputum Cardiovascular: Positive for: chest pain (Left sided rib pain.) Gastrointestinal: Negative for: nausea, vomitting, diarrhea, constipation ( Osvaldo Hughes) Exam Results Vital Signs Date Time Temp Pulse Resp B/P (MAP) Pulse Ox O2 Delivery O2 Flow Rate FiO2 06/22/17 14:03 21 06/22/17 12:00 97.4 84 112/56 (74) 95 06/22/17 08:00 Bi-Pap 75 06/21/17 21:24 12.00 Intake and Output 06/22/17 06/22/17 06/22/17 07:59 15:59 23:59 Intake Total 360 ml Output Total 400 ml Balance -40 ml (Osvaldo Hughes) Physical Examination General: Pt in bed with O2 via mask in pain. Eyes: Pupils equal. Sclera anicteric. Resp: O2 mask in place. CTA bilaterally. Heart: NSR mo murmurs. Abd: Soft positive bs Skin: No cyanosis or erythema. Muscle: Moves LEs with good strength. Neuro: Pt awake and alert. Pupils equal 3mm bilaterally reactive bilaterally. He is [place]. He follows commands well. Speech clear. (Osvaldo Hughes) Lab, Micro, Other Results Last Impressions Chest X-Ray 06/22/17 0000 Signed Impressions: Service Date/Time: Thursday, June 22, 2017 04:47 - CONCLUSION: Mild left lung base subsegmental atelectasis. Pascual Ramires MD Thoracic Spine MRI 06/21/17 0000 Signed Impressions: Service Date/Time: Wednesday, June 21, 2017 15:13 - CONCLUSION: 1. Moderate acute compression fracture of the T3 superior endplate with prominent, approximately 5 mm, retropulsion of the posterior cortex resulting in complete effacement of the anterior thecal sac and flattening of the cervical cord without cord edema. 2. Subtle prominence of the central cervical cord canal at C5-7. This is generally considered benign. Followup MRI examination may be performed to document stability as clinically appropriate. Abdulkadir Marte MD Lumbar Spine MRI 06/21/17 0000 Signed Impressions: Service Date/Time: Wednesday, June 21, 2017 15:13 - CONCLUSION: 1. Multilevel degenerative disease with some loss of disc height disc desiccation from L1-2 through L4-5 with relative sparing at the lumbosacral junction. 2. Broad-based disc bulge at L3-4 slightly more prominent leftward. In combination with left-sided ligamentum flavum and facet hypertrophy, there is encroachment of the lateral recess which appears to compromise the left nerve rootlets of L4 as they move laterally. 3. Predominantly due to facet hypertrophy, narrowing the right neural foramen at L4-5 which appear severe enough to compromise the right L4 nerve root. 4. Spinal canal and neural foramina appear to be adequate all remaining levels. Sampson Ibarra MD Laboratory Tests Test 06/22/17 04:21 06/22/17 07:46 Blood Gas Puncture Site RT RADIAL Blood Gas Patient Temperature 98.6 Blood Gas HCO3 26 mmol/L Blood Gas Base Excess -0.5 mmol/L Blood Gas Oxygen Saturation 89 % Arterial Blood pH 7.28 Arterial Blood Partial Pressure CO2 57 mmHg Arterial Blood Partial Pressure O2 65 mmHg Arterial Blood Oxygen Content 17.6 Vol % Arterial Blood Carboxyhemoglobin 1.1 % Arterial Blood Methemoglobin 1.1 % Blood Gas Hemoglobin 14.0 G/DL Oxygen Delivery Device Non-Rebreathing Mask Blood Gas Inspired Oxygen 100 % White Blood Count 15.5 TH/MM3 Red Blood Count 5.02 MIL/MM3 Hemoglobin 13.9 GM/DL Hematocrit 42.1 % Mean Corpuscular Volume 84.0 FL Mean Corpuscular Hemoglobin 27.7 PG Mean Corpuscular Hemoglobin Concent 33.0 % Red Cell Distribution Width 15.0 % Platelet Count 190 TH/MM3 Mean Platelet Volume 7.9 FL Neutrophils (%) (Auto) 81.2 % Lymphocytes (%) (Auto) 6.0 % Monocytes (%) (Auto) 12.4 % Eosinophils (%) (Auto) 0.1 % Basophils (%) (Auto) 0.3 % Neutrophils # (Auto) 12.6 TH/MM3 Lymphocytes # (Auto) 0.9 TH/MM3 Monocytes # (Auto) 1.9 TH/MM3 Eosinophils # (Auto) 0.0 TH/MM3 Basophils # (Auto) 0.1 TH/MM3 CBC Comment DIFF FINAL Differential Comment Blood Urea Nitrogen 50 MG/DL Creatinine 2.49 MG/DL Random Glucose 202 MG/DL Calcium Level 8.8 MG/DL Sodium Level 138 MEQ/L Potassium Level 4.9 MEQ/L Chloride Level 104 MEQ/L Carbon Dioxide Level 25.1 MEQ/L Anion Gap 9 MEQ/L Estimat Glomerular Filtration Rate 25 ML/MIN (Osvaldo Hughes) Medical Decision Making Impression and Plan A: 76 y/o M s/p Fall from ladder with T3 fracture and left sided rib fractures. P: Discussed with Dr. Lord. Pt will be placed in TLSO brace and okay to be oob with brace on. HOB up to 30 degrees for respiratory. continue with pain control Updated family at bedside who were very appreciative of care provided. (Osvaldo Hughes) Attending Statement The exam, history, and the medical decision-making described in the above note were completed with the assistance of the mid-level provider. I reviewed and agree with the findings presented. I attest that I had a [id number] encounter with the patient on the same day, and personally performed and documented my assessment and findings in the medical record. (Walt Lord MD) Osvaldo Hughes Jun 22, 2017 14:27 Walt Lord MD Jun 23, 2017 14:09
--- NOTE | 2017-06-22 14:45 | RADRPT ---
EXAM DATE/TIME: 06/22/2017 13:23 [facility] COMPARISON: No previous studies available for comparison. INDICATIONS : Right arm swelling. MEDICAL HISTORY : Hypertension. Diabetes mellitus type 2. SURGICAL HISTORY : IVC filter. Biliary stent. ENCOUNTER: Initial ACUITY: 1 day PAIN SCORE: 9/10 LOCATION: Right arm. FINDINGS: There is spontaneous flow documented in the brachial, basilic, cephalic, axillary, and subclavian vei ns. The vessels are compressible and augmentation response is documented. No filling defects are se en. The flow is phasic with respiration. Direction of flow in the jugular vein is caudal. CONCLUSION: No evidence of DVT. Srikanth Andersen MD on June 22, 2017 at 14:42 Board Certified Radiologist. This report was verified electronically.
--- NOTE | 2017-06-22 16:20 | HHI.CCPN ---
Subjective Brief History 76-year-old gentleman who fell from a ladder landing on the ladder with his left side. He was evaluated in outside hospital found to have an acute T2 fracture and 3 left-sided rib fractures. He was transferred to [place] for definitive care. MRI of the thoracic and lumbar spine reveal a T3 fracture. Pt complains of left sided rib pain. He complains of back pain but mostly lower back and left sided rib pain. Patient initially was admitted to the floor however developed some degree of hypoxia and is now transferred to the ICU for further care Patient is on BiPAP mask add oxygen saturations are adequate Patient has serial rib fractures on the right and may eventually end up on the ventilator chance of which is more than 50% 24 Hour Review/Hospital Course 06/22/2017 Patient was short of breath and transferred to the ICU He is awake alert and oriented Hemodynamically stable Bilateral breath sounds splinting over the right chest very tender in the right chest wall This patient has fairly significant chance to end up on the ventilator considering his age pulmonary underlying status and other morbidities Time being however patient is doing well Objective Vital Signs Date Time Temp Pulse Resp B/P (MAP) Pulse Ox O2 Delivery O2 Flow Rate FiO2 06/22/17 15:13 19 06/22/17 12:00 97.4 84 112/56 (74) 95 06/22/17 08:00 Bi-Pap 75 06/21/17 21:24 12.00 Intake and Output 06/22/17 06/22/17 06/23/17 08:00 16:00 00:00 Intake Total 360 ml Output Total 400 ml Balance -40 ml Result Diagram: 06/22/17 0746 06/22/17 0746 Other Results Laboratory Tests Test 06/22/17 04:21 Blood Gas Puncture Site RT RADIAL Blood Gas Patient Temperature 98.6 Blood Gas HCO3 26 mmol/L (22-26) Blood Gas Base Excess -0.5 mmol/L (-2-2) Blood Gas Oxygen Saturation 89 % (90-100) Arterial Blood pH 7.28 (7.380-7.420) Arterial Blood Partial Pressure CO2 57 mmHg (38-42) Arterial Blood Partial Pressure O2 65 mmHg (61-120) Arterial Blood Oxygen Content 17.6 Vol % (12.0-20.0) Arterial Blood Carboxyhemoglobin 1.1 % (0-4) Arterial Blood Methemoglobin 1.1 % (0-2) Blood Gas Hemoglobin 14.0 G/DL (12.0-16.0) Oxygen Delivery Device Non-Rebreathing Mask Blood Gas Inspired Oxygen 100 % Imaging Last 24 hours Impressions Upper Extremity Ultrasound 06/22/17 0000 Signed Impressions: Service Date/Time: Thursday, June 22, 2017 13:23 - CONCLUSION: No evidence of DVT. Srikanth Andersen MD Chest X-Ray 06/22/17 0000 Signed Impressions: Service Date/Time: Thursday, June 22, 2017 04:47 - CONCLUSION: Mild left lung base subsegmental atelectasis. Pascual Ramires MD Exam [employer] Awake and alert somewhat hard of hearing Hemodynamic/Cardiac Hemodynamically patient is stable Pulmonary/Respiratory Patient on BiPAP mask will keep O2 saturations 88% or above Bilateral breath sounds splinting over the right chest very tender in the right chest wall This patient has fairly significant chance to end up on the ventilator considering his age pulmonary underlying status and other morbidities Time being however patient is doing well Abdomen/GI Nutrition Abdomen soft active bowel sounds Renal/I&O Underlying renal insufficiency with increased BUN and creatinine 50/2.5 Part of this is underlying renal insufficiency the other part is probably the trauma with periods of hypo-perfusion itself Depending on which way these numbers go on patient's urine output varies we may or may not have to consult nephrology Assessment and Plan Attestation Critical care 35 minutes Yogi Grey MD Jun 22, 2017 16:20
[2017-06-22] MEDS: SODIUM CHLORIDE 0.9% FLUSH 10 ML FLUSH IV FLUSH PRN (21:05)
[2017-06-23] VITALS (14 sets, daily range): BP systolic 104–129; BP diastolic 59–71; PULSE 78–88; RESP 14–23; TEMP 97–99; O2SAT 92–96
[2017-06-23] MEDS: HYDROmorphone HCL PF 2 MG/ML VIAL IV PUSH PRN ×2 (03:35→16:07)
[2017-06-23] MEDS: CHLORHEXIDINE GLUCONATE 2 % 1 PACK (2 CLOTHS) TOP SCH (04:00)
[2017-06-23] MEDS: METHOCARBAMOL 500 MG TAB PO SCH ×3 (05:43→21:01)
[2017-06-23 05:44] LABS: AUTOMATED NEUTROPHIL # 10.4 TH/MM3 (1.8-7.7); BASOPHIL % 0.1 % (0.0-2.0); EOSINOPHIL % 0.2 % (0.0-4.0); HEMATOCRIT 39.3 % (39.0-51.0); HEMOGLOBIN 12.9 GM/DL (13.0-17.0); LYMPH % 4.3 % (9.0-44.0); LYMPHOCYTE # 0.5 TH/MM3 (1.0-4.8); MEAN CELL VOLUME 83.7 FL (80.0-100.0); MEAN CORPUSCULAR HEMOGLOBIN 27.4 PG (27.0-34.0); MEAN CORPUSCULAR HGB CONC 32.8 % (32.0-36.0); MONO % 11.4 % (0.0-8.0); MONOCYTE # 1.4 TH/MM3 (0-0.9); PLATELET COUNT 163 TH/MM3 (150-450); RED CELL DISTRIBUTION WIDTH 14.8 % (11.6-17.2); WHITE BLOOD COUNT 12.4 TH/MM3 (4.0-11.0)
[2017-06-23 06:09] LABS: BICARBONATE 25.2 MEQ/L (21.0-32.0); CALCIUM 8.2 MG/DL (8.5-10.1); CREATININE 1.75 MG/DL (0.60-1.30)
[2017-06-23] MEDS: RESP: ALBUTEROL 2.5 MG/IPRATROPIUM 0.5 MG NEB (SCH) NEB ×4 (07:58→20:07)
[2017-06-23] MEDS: INSULIN NovoLIN REGULAR SUPPLEMENTAL SCALE SQ SCH ×4 (08:00→21:00)
[2017-06-23] MEDS: SODIUM CHLOR 0.9% 1000 ML INJ 1,000 ML IV SCH ×2 (08:12→17:10)
[2017-06-23] MEDS: CITALOPRAM HYDROBROMIDE 40 MG TAB PO SCH (08:12)
[2017-06-23] MEDS: PANTOPRAZOLE SOD 20 MG DELAYED RELEASE TAB PO SCH (08:12)
[2017-06-23] MEDS: LIDOCAINE HCL 5% PATCH T-DERMAL SCH (08:13)
[2017-06-23] MEDS: DOCUSATE SODIUM 50 MG/SENNA 8.6 MG TAB PO SCH ×2 (08:14→21:01)
[2017-06-23] MEDS: PRAVASTATIN SOD 40 MG TAB PO SCH (08:14)
[2017-06-23] MEDS: amLODIPine BESYLATE 5 MG TAB PO SCH (08:14)
[2017-06-23] MEDS: LOSARTAN 25 MG TAB PO SCH (08:14)
[2017-06-23] MEDS: POLYETHYLENE GLYCOL 17 GM PKG PO SCH (08:14)
--- NOTE | 2017-06-23 08:56 | RADRPT ---
EXAM DATE/TIME: 06/23/2017 08:33 [facility] COMPARISON: CHEST SINGLE AP, June 22, 2017, 4:47. INDICATIONS : Pulmonary contusion. MEDICAL HISTORY : Hypertension. SURGICAL HISTORY : Abdominal aortic aneurysm repair. ENCOUNTER: Subsequent ACUITY: 3 days PAIN SCORE: Non-responsive. LOCATION: Bilateral chest FINDINGS: Single AP upright portable view of the chest demonstrates stable appearance of mild cardiomegaly, tor tuosity of the thoracic aorta and cephalization of pulmonary vasculature. There are areas of linear p arenchymal opacity involving the right lower lobe and left lower lobe. The lungs are hypoinflated. No evidence of pneumothorax. Osseous structures appear intact. CONCLUSION: The lungs are hypoinflated with areas of atelectasis. Prominence of the pulmonary vasculature may be related to volume overload or congestive heart failure. Indira Loera MD on June 23, 2017 at 8:51 Board Certified Radiologist. This report was verified electronically.
[2017-06-23] MEDS: ENOXAPARIN SODIUM 30 MG/0.3 ML SYRINGE SQ SCH ×2 (09:56→21:01)
[2017-06-23] MEDS: GABAPENTIN 300 MG CAP PO SCH ×2 (11:45→17:10)
--- NOTE | 2017-06-23 12:20 | HHI.CCPN ---
Subjective Brief History 76-year-old gentleman who fell from a ladder landing on the ladder with his left side. He was evaluated in outside hospital found to have an acute T2 fracture and 3 left-sided rib fractures. He was transferred to [place] for definitive care. MRI of the thoracic and lumbar spine reveal a T3 fracture. Pt complains of left sided rib pain. He complains of back pain but mostly lower back and left sided rib pain. Patient initially was admitted to the floor however developed some degree of hypoxia and is now transferred to the ICU for further care Patient is on BiPAP mask add oxygen saturations are adequate Patient has serial rib fractures on the right and may eventually end up on the ventilator chance of which is more than 50% 24 Hour Review/Hospital Course 06/22/2017 Patient was short of breath and transferred to the ICU He is awake alert and oriented Hemodynamically stable Bilateral breath sounds splinting over the right chest very tender in the right chest wall This patient has fairly significant chance to end up on the ventilator considering his age pulmonary underlying status and other morbidities Time being however patient is doing well 06/23/2017 Patient doing slightly better today He is awake alert and oriented Bilateral pulmonary excursion and patient taking better breaths We will do ABGs are slightly worse today as far as ventilation is concerned it should be noted that this patient is a CO2 retainer and probably lives on fairly high PCO2 in face of COPD and chronic hypoventilation Oxygenation slightly better and PO2 FiO2 gradient slightly improved Will adjust BiPAP mask settings as well as fitting Every effort should be made not to have to intubate this patient for once he is intubated will be very hard to extubate him Abdomen is soft patient is currently not taking diet but I will let him drink a bit between the periods of BiPAP mask Objective Vital Signs Date Time Temp Pulse Resp B/P (MAP) Pulse Ox O2 Delivery O2 Flow Rate FiO2 06/23/17 11:58 94 Partial Rebreather 15.00 06/23/17 08:00 80 06/23/17 08:00 98.5 22 104/59 (74) 06/23/17 08:00 75 Intake and Output 06/23/17 06/23/17 06/24/17 08:00 16:00 00:00 Intake Total 1260 ml Output Total 950 ml Balance 310 ml Result Diagram: 06/23/17 0424 06/23/17 0424 Other Results Laboratory Tests Test 06/23/17 06:40 Blood Gas Puncture Site RT RADIAL Blood Gas Patient Temperature 98.6 Blood Gas HCO3 23 mmol/L (22-26) Blood Gas Base Excess -3.4 mmol/L (-2-2) Blood Gas Oxygen Saturation 92 % (90-100) Arterial Blood pH 7.22 (7.380-7.420) Arterial Blood Partial Pressure CO2 59 mmHg (38-42) Arterial Blood Partial Pressure O2 77 mmHg (61-120) Arterial Blood Oxygen Content 16.6 Vol % (12.0-20.0) Arterial Blood Carboxyhemoglobin 0.9 % (0-4) Arterial Blood Methemoglobin 1.1 % (0-2) Blood Gas Hemoglobin 12.8 G/DL (12.0-16.0) Oxygen Delivery Device BIPAP Blood Gas Ventilator Setting IPAP 16/EPAP 8 Blood Gas Inspired Oxygen 75 % Imaging Last 24 hours Impressions Chest X-Ray 06/23/17 0000 Signed Impressions: Service Date/Time: Friday, June 23, 2017 08:33 - CONCLUSION: The lungs are hypoinflated with areas of atelectasis. Prominence of the pulmonary vasculature may be related to volume overload or congestive heart failure. Indira Loera MD Exam MANAGER INTENSIVE CARE Awake alert oriented feels better Hemodynamic/Cardiac Hemodynamically remains intact Pulmonary/Respiratory Patient doing slightly better today He is awake alert and oriented Bilateral pulmonary excursion and patient taking better breaths We will do ABGs are slightly worse today as far as ventilation is concerned it should be noted that this patient is a CO2 retainer and probably lives on fairly high PCO2 in face of COPD and chronic hypoventilation Oxygenation slightly better and PO2 FiO2 gradient slightly improved Will adjust BiPAP mask settings as well as fitting Every effort should be made not to have to intubate this patient for once he is intubated will be very hard to extubate him Abdomen is soft patient is currently not taking diet but I will let him drink a bit between the periods of BiPAP mask Abdomen/GI Nutrition Abdomen is soft Renal/I&O Renal function is slowly improving and BUN and creatinine are decreasing with slight improvement of GFR Patient clearly has underlying chronic renal disease however on top of it he was probably somewhat dehydrated initially Metabolic/Acid-Base Arterial blood gases as above noted a consistent with partially compensated respiratory acidosis in face of COPD and chronic CO2 retention This patient usually lives with high CO2 and we have artificially lowered it initially so renal compensation has to catch up with this Assessment and Plan Attestation Critical care time 32 minute Yogi Grey MD Jun 23, 2017 12:20
--- NOTE | 2017-06-23 14:40 | HHI.NSPN ---
History Chief Complaint: Left rib pain. Interval History 76-year-old gentleman who fell from a ladder landing on the ladder with his left side. He was evaluated in outside hospital found to have an acute T2 fracture and 3 left-sided rib fractures. He was transferred to [place] for definitive care. MRI of the thoracic and lumbar spine reveal a T3 fracture. Pt complains of left sided rib pain. He complains of back pain but mostly lower back and left sided rib pain. 06/23/17: Pt awake and alert. Complains of mostly left rib pain and abdominal discomfort that come in spasms and waves. No radiculopathy or paresthesias in LEs. Pt remains in ICU with O2 mask. Review of Systems General: Negative for: fever, chills, insomnia Respiratory: Positive for: shortness of breath, Negative for: cough, sputum Cardiovascular: Positive for: chest pain Gastrointestinal: Negative for: nausea, vomitting, diarrhea, constipation Exam Results Vital Signs Date Time Temp Pulse Resp B/P (MAP) Pulse Ox O2 Delivery O2 Flow Rate FiO2 06/23/17 13:00 20 06/23/17 12:00 99.0 88 126/59 (81) 94 06/23/17 11:58 Partial Rebreather 15.00 06/23/17 08:00 75 Intake and Output 06/23/17 06/23/17 06/24/17 08:00 16:00 00:00 Intake Total 1260 ml Output Total 950 ml Balance 310 ml Physical Examination General: Pt in bed with O2 via mask in pain. Eyes: Pupils equal. Sclera anicteric. Resp: O2 mask in place. CTA bilaterally. Heart: NSR mo murmurs. Abd: Soft positive bs Skin: No cyanosis or erythema. Muscle: Moves LEs with good strength. Neuro: Pt awake and alert. Pupils equal 3mm bilaterally reactive bilaterally. He is [place]. He follows commands well. Speech clear. Lab, Micro, Other Results Last Impressions Chest X-Ray 06/23/17 0000 Signed Impressions: Service Date/Time: Friday, June 23, 2017 08:33 - CONCLUSION: The lungs are hypoinflated with areas of atelectasis. Prominence of the pulmonary vasculature may be related to volume overload or congestive heart failure. Indira Loera MD Upper Extremity Ultrasound 06/22/17 0000 Signed Impressions: Service Date/Time: Thursday, June 22, 2017 13:23 - CONCLUSION: No evidence of DVT. Srikanth Andersen MD Thoracic Spine MRI 06/21/17 0000 Signed Impressions: Service Date/Time: Wednesday, June 21, 2017 15:13 - CONCLUSION: 1. Moderate acute compression fracture of the T3 superior endplate with prominent, approximately 5 mm, retropulsion of the posterior cortex resulting in complete effacement of the anterior thecal sac and flattening of the cervical cord without cord edema. 2. Subtle prominence of the central cervical cord canal at C5-7. This is generally considered benign. Followup MRI examination may be performed to document stability as clinically appropriate. Abdulkadir Marte MD Lumbar Spine MRI 06/21/17 0000 Signed Impressions: Service Date/Time: Wednesday, June 21, 2017 15:13 - CONCLUSION: 1. Multilevel degenerative disease with some loss of disc height disc desiccation from L1-2 through L4-5 with relative sparing at the lumbosacral junction. 2. Broad-based disc bulge at L3-4 slightly more prominent leftward. In combination with left-sided ligamentum flavum and facet hypertrophy, there is encroachment of the lateral recess which appears to compromise the left nerve rootlets of L4 as they move laterally. 3. Predominantly due to facet hypertrophy, narrowing the right neural foramen at L4-5 which appear severe enough to compromise the right L4 nerve root. 4. Spinal canal and neural foramina appear to be adequate all remaining levels. Sampson Ibarra MD Laboratory Tests Test 06/23/17 04:24 06/23/17 06:40 White Blood Count 12.4 TH/MM3 Red Blood Count 4.70 MIL/MM3 Hemoglobin 12.9 GM/DL Hematocrit 39.3 % Mean Corpuscular Volume 83.7 FL Mean Corpuscular Hemoglobin 27.4 PG Mean Corpuscular Hemoglobin Concent 32.8 % Red Cell Distribution Width 14.8 % Platelet Count 163 TH/MM3 Mean Platelet Volume 8.0 FL Neutrophils (%) (Auto) 84.0 % Lymphocytes (%) (Auto) 4.3 % Monocytes (%) (Auto) 11.4 % Eosinophils (%) (Auto) 0.2 % Basophils (%) (Auto) 0.1 % Neutrophils # (Auto) 10.4 TH/MM3 Lymphocytes # (Auto) 0.5 TH/MM3 Monocytes # (Auto) 1.4 TH/MM3 Eosinophils # (Auto) 0.0 TH/MM3 Basophils # (Auto) 0.0 TH/MM3 CBC Comment DIFF FINAL Differential Comment Blood Urea Nitrogen 46 MG/DL Creatinine 1.75 MG/DL Random Glucose 129 MG/DL Calcium Level 8.2 MG/DL Sodium Level 139 MEQ/L Potassium Level 4.8 MEQ/L Chloride Level 105 MEQ/L Carbon Dioxide Level 25.2 MEQ/L Anion Gap 9 MEQ/L Estimat Glomerular Filtration Rate 38 ML/MIN Blood Gas Puncture Site RT RADIAL Blood Gas Patient Temperature 98.6 Blood Gas HCO3 23 mmol/L Blood Gas Base Excess -3.4 mmol/L Blood Gas Oxygen Saturation 92 % Arterial Blood pH 7.22 Arterial Blood Partial Pressure CO2 59 mmHg Arterial Blood Partial Pressure O2 77 mmHg Arterial Blood Oxygen Content 16.6 Vol % Arterial Blood Carboxyhemoglobin 0.9 % Arterial Blood Methemoglobin 1.1 % Blood Gas Hemoglobin 12.8 G/DL Oxygen Delivery Device BIPAP Blood Gas Ventilator Setting IPAP 16/EPAP 8 Blood Gas Inspired Oxygen 75 % Medical Decision Making Impression and Plan A: 76 y/o M s/p Fall from ladder with T3 fracture and left sided rib fractures. P: HOB up to 30 degrees for respiratory. continue with pain control TLSO brace when oob. Osvaldo Hughes Jun 23, 2017 2:40 pm
--- NOTE | 2017-06-23 16:10 | RADRPT ---
EXAM DATE/TIME: 06/23/2017 15:37 [facility] COMPARISON: CT THORAX W CONTRAST, June 20, 2017, 17:13. INDICATIONS : Trauma, fall from ladder three days ago. RADIATION DOSE: 13.40 CTDIvol (mGy) MEDICAL HISTORY : Hypertension. diabetes SURGICAL HISTORY : mesh lung implants ENCOUNTER: Initial ACUITY: 1 day PAIN SCALE: 6/10 LOCATION: Left chest TECHNIQUE: Volumetric scanning of the chest was performed. Using automated exposure control and adjustment of t he mA and/or kV according to patient size, radiation dose was kept as low as reasonably achievable to obtain optimal diagnostic quality images. DICOM format image data is available electronically for r eview and comparison. Follow-up recommendations for detected pulmonary nodules are based at a minimum on nodule size and pa tient risk factors according to Fleischner Society Guidelines. FINDINGS: Patchy airspace opacities are seen throughout both lungs. There is dependent atelectasis of both base s and tiny bilateral effusions. These findings are worse in the interim. There is no evidence of acti ve bleeding or acute hemothorax. There is no pneumothorax. Acute fractures are again seen anterolaterally of the left fifth, sixth and seventh ribs. There is an old fracture posterolaterally the left fifth rib again seen. CONCLUSION: Patchy airspace disease, bibasilar atelectasis and tiny bilateral pleural effusions are all mostly wo rse in the interim. Left rib fractures are again noted. No pneumothorax. Rik Rangel MD on June 23, 2017 at 16:05 Board Certified Radiologist. This report was verified electronically.
[2017-06-24] VITALS (15 sets, daily range): BP systolic 103–120; BP diastolic 56–68; PULSE 67–86; RESP 15–22; TEMP 98.1–99.1; O2SAT 90–95
[2017-06-24] MEDS: HYDROmorphone HCL PF 2 MG/ML VIAL IV PUSH PRN (00:08)
[2017-06-24] MEDS: SODIUM CHLOR 0.9% 1000 ML INJ 1,000 ML IV SCH (02:34)
[2017-06-24] MEDS: CHLORHEXIDINE GLUCONATE 2 % 1 PACK (2 CLOTHS) TOP SCH (04:00)
--- NOTE | 2017-06-24 05:21 | RADRPT ---
EXAM DATE/TIME: 06/24/2017 04:13 [facility] COMPARISON: CHEST SINGLE AP, June 23, 2017, 8:33. INDICATIONS : Short of breath. Pulmonary contusion MEDICAL HISTORY : Hypertension. SURGICAL HISTORY : Abdominal aortic aneurysm repair. ENCOUNTER: Subsequent ACUITY: 4 - 6 days PAIN SCORE: 0/10 LOCATION: Bilateral chest FINDINGS: A single view of the chest demonstrates scattered parenchymal densities. Cardiomegaly with pulmonary vascular congestion. Osseous structures are intact. CONCLUSION: Scattered parenchymal densities and pulmonary vascular congestion. Osvaldo Herrera MD on June 24, 2017 at 5:19 Board Certified Radiologist. This report was verified electronically.
[2017-06-24] MEDS: METHOCARBAMOL 500 MG TAB PO SCH ×3 (05:30→22:48)
[2017-06-24 07:01] LABS: AUTOMATED NEUTROPHIL # 8.8 TH/MM3 (1.8-7.7); BASOPHIL % 0.4 % (0.0-2.0); EOSINOPHIL # 0.1 TH/MM3 (0-0.4); HEMATOCRIT 36.2 % (39.0-51.0); HEMOGLOBIN 11.9 GM/DL (13.0-17.0); LYMPH % 6.4 % (9.0-44.0); LYMPHOCYTE # 0.7 TH/MM3 (1.0-4.8); MEAN CELL VOLUME 83.7 FL (80.0-100.0); MEAN CORPUSCULAR HEMOGLOBIN 27.7 PG (27.0-34.0); MEAN PLATELET VOLUME 7.7 FL (7.0-11.0); MONOCYTE # 1.2 TH/MM3 (0-0.9); NEUT % 81.2 % (16.0-70.0); PLATELET COUNT 162 TH/MM3 (150-450); RED BLOOD COUNT 4.32 MIL/MM3 (4.50-5.90); RED CELL DISTRIBUTION WIDTH 14.7 % (11.6-17.2); WHITE BLOOD COUNT 10.9 TH/MM3 (4.0-11.0)
[2017-06-24 07:32] LABS: BICARBONATE 22.6 MEQ/L (21.0-32.0); CREATININE 1.12 MG/DL (0.60-1.30)
[2017-06-24] MEDS: INSULIN NovoLIN REGULAR SUPPLEMENTAL SCALE SQ SCH ×4 (08:00→20:18)
[2017-06-24] MEDS: RESP: ALBUTEROL 2.5 MG/IPRATROPIUM 0.5 MG NEB (SCH) NEB ×5 (08:22→23:36)
[2017-06-24] MEDS: POLYETHYLENE GLYCOL 17 GM PKG PO SCH (09:00)
[2017-06-24] MEDS: LIDOCAINE HCL 5% PATCH T-DERMAL SCH (09:39)
[2017-06-24] MEDS: ENOXAPARIN SODIUM 30 MG/0.3 ML SYRINGE SQ SCH ×2 (09:39→22:48)
[2017-06-24] MEDS: PANTOPRAZOLE SOD 20 MG DELAYED RELEASE TAB PO SCH (09:40)
[2017-06-24] MEDS: CITALOPRAM HYDROBROMIDE 40 MG TAB PO SCH (09:40)
[2017-06-24] MEDS: amLODIPine BESYLATE 5 MG TAB PO SCH (09:40)
[2017-06-24] MEDS: DOCUSATE SODIUM 50 MG/SENNA 8.6 MG TAB PO SCH ×2 (09:40→20:19)
[2017-06-24] MEDS: GABAPENTIN 300 MG CAP PO SCH ×3 (09:41→19:00)
[2017-06-24] MEDS: LOSARTAN 25 MG TAB PO SCH (09:41)
[2017-06-24] MEDS: PRAVASTATIN SOD 40 MG TAB PO SCH (09:41)
[2017-06-24] MEDS ORDERED: FUROSEMIDE 20 MG/2 ML VIAL IV PUSH ONE (15:45)
--- NOTE | 2017-06-24 16:32 | HHI.CCPN ---
Subjective Brief History 76-year-old gentleman who fell from a ladder landing on the ladder with his left side. He was evaluated in outside hospital found to have an acute T2 fracture and 3 left-sided rib fractures. He was transferred to [place] for definitive care. MRI of the thoracic and lumbar spine reveal a T3 fracture. Pt complains of left sided rib pain. He complains of back pain but mostly lower back and left sided rib pain. Patient initially was admitted to the floor however developed some degree of hypoxia and is now transferred to the ICU for further care Patient is on BiPAP mask add oxygen saturations are adequate Patient has serial rib fractures on the right and may eventually end up on the ventilator chance of which is more than 50% 24 Hour Review/Hospital Course 06/24/2017 06/22/2017 Patient was short of breath and transferred to the ICU He is awake alert and oriented Hemodynamically stable Bilateral breath sounds splinting over the right chest very tender in the right chest wall This patient has fairly significant chance to end up on the ventilator considering his age pulmonary underlying status and other morbidities Time being however patient is doing well 06/23/2017 Patient doing slightly better today He is awake alert and oriented Bilateral pulmonary excursion and patient taking better breaths We will do ABGs are slightly worse today as far as ventilation is concerned it should be noted that this patient is a CO2 retainer and probably lives on fairly high PCO2 in face of COPD and chronic hypoventilation Oxygenation slightly better and PO2 FiO2 gradient slightly improved Will adjust BiPAP mask settings as well as fitting Every effort should be made not to have to intubate this patient for once he is intubated will be very hard to extubate him Abdomen is soft patient is currently not taking diet but I will let him drink a bit between the periods of BiPAP mask 06/24/2017 Patient doing much better this morning We will removed from BiPAP mask and start on facemask 60% FiO2 Advance to diet Providing patient improves will transfer to floor tomorrow Objective Vital Signs Date Time Temp Pulse Resp B/P (MAP) Pulse Ox O2 Delivery O2 Flow Rate FiO2 06/24/17 13:41 21 06/24/17 13:41 94 Nasal Cannula 6.00 06/24/17 12:00 99.1 84 106/63 (77) 06/24/17 08:22 60 Intake and Output 06/24/17 06/24/17 06/25/17 08:00 16:00 00:00 Intake Total 1000 ml Balance 1000 ml Result Diagram: 06/24/17 0626 06/24/17 06 Other Results Laboratory Tests Test 06/24/17 05:51 Blood Gas Puncture Site LT RADIAL Blood Gas Patient Temperature 98.6 Blood Gas HCO3 23 mmol/L (22-26) Blood Gas Base Excess -2.9 mmol/L (-2-2) Blood Gas Oxygen Saturation 89 % (90-100) Arterial Blood pH 7.28 (7.380-7.420) Arterial Blood Partial Pressure CO2 50 mmHg (38-42) Arterial Blood Partial Pressure O2 60 mmHg (61-120) Arterial Blood Oxygen Content 15.0 Vol % (12.0-20.0) Arterial Blood Carboxyhemoglobin 1.1 % (0-4) Arterial Blood Methemoglobin 1.0 % (0-2) Blood Gas Hemoglobin 12.0 G/DL (12.0-16.0) Oxygen Delivery Device BiPAP Blood Gas Ventilator Setting 16/8 Blood Gas Inspired Oxygen 60 % Imaging Last 24 hours Impressions Chest X-Ray 06/24/17 0600 Signed Impressions: Service Date/Time: Saturday, June 24, 2017 04:13 - CONCLUSION: Scattered parenchymal densities and pulmonary vascular congestion. Osvaldo Herrera MD Exam [employer] Awake alert oriented feels better Hemodynamic/Cardiac Hemodynamically stable Pulmonary/Respiratory Bilateral good breath sounds much better pulmonary excursion and taking deep breaths easier improved PO2 FiO2 gradient significantly Switch to facemask and if okay transfer to floor tomorrow Abdomen/GI Nutrition Abdomen soft start on a diet Renal/I&O Renal function greatly improved Assessment and Plan Attestation Critical care 32 minutes Yogi Grey MD Jun 24, 2017 16:32
--- NOTE | 2017-06-24 17:19 | HHI.NSPN ---
(Aurora Frazier) Note Status Status: Progress Note (Aurora Frazier) Interval History Interval History 76-year-old gentleman who fell from a ladder landing on the ladder with his left side. He was evaluated in outside hospital found to have an acute T2 fracture and 3 left-sided rib fractures. He was transferred to [place] for definitive care. MRI of the thoracic and lumbar spine reveal a T3 fracture. Pt complains of left sided rib pain. He complains of back pain but mostly lower back and left sided rib pain. 06/23/17: Pt awake and alert. Complains of mostly left rib pain and abdominal discomfort that come in spasms and waves. No radiculopathy or paresthesias in LEs. Pt remains in ICU with O2 mask. 06/24: remains on nonrebreathing with o2 supplementation. c/o of back and rib pain with movement. (Aurora Frazier) Labs, Micro, & Vital Signs Results Date Time Temp Pulse Resp B/P (MAP) Pulse Ox O2 Delivery O2 Flow Rate FiO2 06/24/17 13:41 21 06/24/17 13:41 94 Nasal Cannula 6.00 06/24/17 12:00 99.1 84 15 106/63 (77) 94 06/24/17 08:57 92 Partial Rebreather 15.00 06/24/17 08:22 94 60 06/24/17 08:00 98.3 72 18 112/56 (74) 95 06/24/17 07:00 Bi-Pap 60 06/24/17 07:00 71 06/24/17 04:00 98.3 67 17 103/57 (72) 94 06/24/17 03:30 Bi-Pap 60 06/24/17 03:20 94 60 06/24/17 00:45 92 Non-Rebreather 06/24/17 00:00 98.5 80 17 113/60 (77) 94 06/24/17 00:00 80 06/23/17 22:00 81 06/23/17 21:45 86 Bi-Pap 60 06/23/17 21:30 92 60 06/23/17 21:20 92 Bi-Pap 60 06/23/17 20:07 93 Partial Rebreather 15.00 06/23/17 20:00 81 06/23/17 20:00 94 Non-Rebreather 06/23/17 20:00 98.4 81 14 126/65 (85) 94 06/23/17 17:23 96 Constitutional Vital Signs Date Time Temp Pulse Resp B/P (MAP) Pulse Ox O2 Delivery O2 Flow Rate FiO2 06/24/17 13:41 21 06/24/17 13:41 94 Nasal Cannula 6.00 06/24/17 12:00 99.1 84 15 106/63 (77) 94 06/24/17 08:57 92 Partial Rebreather 15.00 06/24/17 08:22 94 60 06/24/17 08:00 98.3 72 18 112/56 (74) 95 06/24/17 07:00 Bi-Pap 60 06/24/17 07:00 71 06/24/17 04:00 98.3 67 17 103/57 (72) 94 06/24/17 03:30 Bi-Pap 60 06/24/17 03:20 94 60 06/24/17 00:45 92 Non-Rebreather 06/24/17 00:00 98.5 80 17 113/60 (77) 94 06/24/17 00:00 80 06/23/17 22:00 81 06/23/17 21:45 86 Bi-Pap 60 06/23/17 21:30 92 60 06/23/17 21:20 92 Bi-Pap 60 06/23/17 20:07 93 Partial Rebreather 15.00 06/23/17 20:00 81 06/23/17 20:00 94 Non-Rebreather 06/23/17 20:00 98.4 81 14 126/65 (85) 94 06/23/17 17:23 96 (Aurora Frazier) Review of Systems Respiratory: COMPLAINS OF: Shortness of breath Musculoskeletal: COMPLAINS OF: Back pain (Aurora Frazier) Physical Exam General: Pt in bed with O2 via mask in pain. Eyes: Pupils equal. Sclera anicteric. Resp: O2 mask in place. CTA bilaterally. Heart: NSR mo murmurs. Abd: Soft positive bs Skin: No cyanosis or erythema. Muscle: Moves LEs with good strength. Neuro: Pt awake and alert. Pupils equal 3mm bilaterally reactive bilaterally. He is [place]. He follows commands well. Speech clear. (Aurora Frazier) Alert, awake on a BiPAP mask Eyes: Pupils equal. Sclera anicteric. Resp: O2 mask in place. CTA bilaterally. Heart: NSR mo murmurs. Abd: Soft positive bs Skin: No cyanosis or erythema. Cranial nerve examination: pupils to be equal, round and reactive to light. Extra-ocular movements are intact. Facial motor and sensory function are normal and symmetrical. Gross hearing decreases bilaterally Sternocleidomastoid and trapezius muscles are symmetrical. Other cranial nerves are intact. Neck is soft and supple with a good range of motion without pain. Muscle strength is normal in all muscle groups of both upper and lower extremities. Sensory examination is intact to light touch and pin prick in both the upper and lower extremities. Deep tendon reflexes are symmetrical in both upper and lower extremities. There is a bilateral plantar flexion response. Cerebellar examination is unremarkable, without deficits. (Steve Vidal MD) Medications Current Medications Current Medications Medications (Trade) Dose Ordered Sig/Dalton Route PRN Reason Start Time Stop Time Status Last Admin Dose Admin Sodium Chloride (NS Flush) 2 ml UNSCH PRN IV FLUSH FLUSH AFTER USING IV ACCESS 06/20/17 21:30 06/22/17 21:05 Hydromorphone HCl (Dilaudid Pf Inj) 1 mg Q3H PRN IV PUSH BREAKTHROUGH PAIN 06/20/17 21:45 06/24/17 00:08 Oxycodone HCl (Roxicodone) 5 mg Q3H PRN PO PAIN SCALE 1 TO 5 06/20/17 21:30 06/23/17 11:45 Oxycodone HCl (Roxicodone) 10 mg Q3H PRN PO PAIN SCALE 6 TO 10 06/20/17 21:30 06/24/17 12:41 Enalaprilat (Vasotec Inj) 1.25 mg Q8H PRN IV PUSH SBP>180, DBP>95 06/20/17 21:30 Ondansetron HCl (Zofran Inj) 4 mg Q6H PRN IV PUSH NAUSEA OR VOMITING 06/20/17 21:30 06/22/17 14:02 Enoxaparin Sodium (Lovenox Inj) 30 mg Q12H SQ 06/20/17 22:00 06/24/17 09:39 Magnesium Hydroxide (Milk Of Magnesia Liq) 30 ml Q6H PRN PO CONSTIPATION 06/20/17 21:30 06/21/17 09:17 Miscellaneous Information 1 Q361D XX 06/20/17 21:30 Chlorhexidine Gluconate (Chlorhexidine 2% Cloth) 3 pack Taper DAILY@04 TOP 06/21/17 04:00 06/17/18 03:59 06/23/17 04:00 Chlorhexidine Gluconate (Chlorhexidine 2% Cloth) 3 pack UNSCH PRN TOP HYGIENIC CARE 06/20/17 21:30 Dextrose (D50w (Vial) Inj) 50 ml UNSCH PRN IV PUSH HYPOGLYCEMIA-SEE COMMENTS 06/20/17 21:30 Glucagon (Glucagon Inj) 1 mg UNSCH PRN OTHER HYPOGLYCEMIA-SEE COMMENTS 06/20/17 21:30 Insulin Human Regular (NovoLIN R SUPPLEMENTAL SCALE) 1 ACHS SLIDING SCALE SQ 06/21/17 08:00 06/22/17 11:30 Methocarbamol (Robaxin) 500 mg Q8HR PO 06/21/17 08:15 06/24/17 12:41 Lidocaine HCl (Lidoderm 5% Patch.12 Hr) 1 patch DAILY T-DERMAL 06/21/17 09:00 06/24/17 09:39 Senna/Docusate Sodium (Brandy-Colace) 1 tab BID PO 06/21/17 09:00 06/24/17 09:40 Lactulose (Lactulose Liq) 30 ml DAILY PRN PO No BM in 2 days 06/21/17 07:45 Polyethylene Glycol (Miralax) 17 gm DAILY PO 06/21/17 09:00 06/22/17 09:58 Amlodipine Besylate (Norvasc) 5 mg DAILY PO 06/21/17 09:00 06/24/17 09:40 Losartan Potassium (Cozaar) 25 mg DAILY PO 06/21/17 09:00 06/24/17 09:41 Pantoprazole Sodium (Protonix) 20 mg DAILY PO 06/21/17 09:00 06/24/17 09:40 Pravastatin Sodium (Pravachol) 40 mg DAILY PO 06/21/17 09:00 06/24/17 09:41 Citalopram Hydrobromide (CeleXA) 40 mg DAILY PO 06/21/17 09:00 06/24/17 09:40 Albuterol/ Ipratropium (Duoneb Neb) 1 ampule Q2HR NEB PRN NEB SHORTNESS OF BREATH 06/21/17 07:45 06/22/17 04:34 Fentanyl (Duragesic 50 Mcg Patch.72 Hr) 1 patch Q3D T-DERMAL 06/22/17 13:00 06/22/17 13:00 Miscellaneous Information 1 Q3D T-DERMAL 06/22/17 13:00 06/22/17 13:00 Gabapentin (Neurontin) 300 mg TID PO 06/23/17 13:00 06/24/17 12:41 Furosemide (Lasix Inj) 20 mg BID@ IV PUSH 06/24/17 18:00 06/25/17 09:01 Albuterol/ Ipratropium (Duoneb Neb) 1 ampule Q4HR NEB NEB 06/24/17 12:00 06/24/17 15:29 (Aurora Frazier) Current Medications Current Medications Sodium Chloride (NS Flush) 2 ml UNSCH PRN IV FLUSH FLUSH AFTER USING IV ACCESS Last administered on 06/25/17 08:48; Start 06/20/17 at 21:30 Hydromorphone HCl (Dilaudid Pf Inj) 1 mg Q3H PRN IV PUSH BREAKTHROUGH PAIN Last administered on 06/24/17at 00:08; Start 06/20/17 at 21:45 Oxycodone HCl (Roxicodone) 5 mg Q3H PRN PO PAIN SCALE 1 TO 5 Last administered on 06/23/17at 11:45; Start 06/20/17 at 21:30 Oxycodone HCl (Roxicodone) 10 mg Q3H PRN PO PAIN SCALE 6 TO 10 Last administered on 06/25/17at 12:26; Start 06/20/17 at 21:30 Enalaprilat (Vasotec Inj) 1.25 mg Q8H PRN IV PUSH SBP>180, DBP>95; Start at 21:30 Ondansetron HCl (Zofran Inj) 4 mg Q6H PRN IV PUSH NAUSEA OR VOMITING Last administered on 06/22/17 14:02; Start 06/20/17 at 21:30 Enoxaparin Sodium (Lovenox Inj) 30 mg Q12H SQ Last administered on 06/25/17 08 :48; Start 06/20/17 at 22:00 Docusate Sodium (Colace) 100 mg BID PO ; Start 06/21/17 at 09:00; Stop 06/21/17 at 09:00; Status DC Magnesium Hydroxide (Milk Of Magnesia Liq) 30 ml Q6H PRN PO CONSTIPATION Last administered on 06/21/17 09:17; Start 06/20/17 at 21:30 Miscellaneous Information 1 Q361D XX ; Start 06/20/17 at 21:30 Chlorhexidine Gluconate (Chlorhexidine 2% Cloth) 3 pack Taper DAILY@04 TOP Last administered on 06/23/17 04:00; Start 06/21/17 at 04:00; Stop 06/17/18 at 03: 59 Chlorhexidine Gluconate (Chlorhexidine 2% Cloth) 3 pack UNSCH PRN TOP HYGIENIC CARE; Start 06/20/17 at 21:30 Dextrose (D50w (Vial) Inj) 50 ml UNSCH PRN IV PUSH HYPOGLYCEMIA-SEE COMMENTS; Start 06/20/17 at 21:30 Glucagon (Glucagon Inj) 1 mg UNSCH PRN OTHER HYPOGLYCEMIA-SEE COMMENTS; Start 06/20/17 at 21:30 Insulin Human Regular (NovoLIN R SUPPLEMENTAL SCALE) 1 ACHS SLIDING SCALE SQ Last administered on 06/25/17 12:25; Start 06/21/17 at 08:00 Methocarbamol (Robaxin) 500 mg Q8HR PO Last administered on 06/25/17 12:25; Start 06/21/17 at 08:15 Lidocaine HCl (Lidoderm 5% Patch.12 Hr) 1 patch DAILY T-DERMAL Last administered on 06/25/17 08:47; Start 06/21/17 at 09:00 Senna/Docusate Sodium (Brandy-Colace) 1 tab BID PO Last administered on 08:48; Start 06/21/17 at 09:00 Lactulose (Lactulose Liq) 30 ml DAILY PRN PO No BM in 2 days Last administered on 06/25/17 08:48; Start 06/21/17 at 07:45 Polyethylene Glycol (Miralax) 17 gm DAILY PO Last administered on 06/25/17 08: 47; Start 06/21/17 at 09:00 Amlodipine Besylate (Norvasc) 5 mg DAILY PO Last administered on 06/25/17 08: 48; Start 06/21/17 at 09:00 Losartan Potassium (Cozaar) 25 mg DAILY PO Last administered on 06/25/17 08:48 ; Start 06/21/17 at 09:00 Pantoprazole Sodium (Protonix) 20 mg DAILY PO Last administered on 06/25/17 08 :49; Start 06/21/17 at 09:00 Pravastatin Sodium (Pravachol) 40 mg DAILY PO Last administered on 06/25/17 08 :48; Start 06/21/17 at 09:00 Citalopram Hydrobromide (CeleXA) 40 mg DAILY PO Last administered on 06/25/17 08:49; Start 06/21/17 at 09:00 Albuterol/ Ipratropium (Duoneb Neb) 1 ampule Q2HR NEB PRN NEB SHORTNESS OF BREATH Last administered on 06/22/17 04:34; Start 06/21/17 at 07:45 Albuterol/ Ipratropium (Duoneb Neb) 1 ampule Q4HR WHILE AWAKE NEB NEB Last administered on 06/24/17 08:22; Start 06/21/17 at 14:00; Stop 06/24/17 at 09:27; Status DC Sodium Chloride 1,000 ml @ 100 mls/hr Q10H IV Last administered on 06/24/17 02 :34; Start 06/22/17 at 12:00; Stop 06/24/17 at 09:25; Status DC Fentanyl (Duragesic 50 Mcg Patch.72 Hr) 1 patch Q3D T-DERMAL Last administered on 06/25/17 12:26; Start 06/22/17 at 13:00 Miscellaneous Information 1 Q3D T-DERMAL Last administered on 06/25/17 12:26; Start 06/22/17 at 13:00 Gabapentin (Neurontin) 300 mg TID PO Last administered on 06/25/17 12:25; Start 06/23/17 at 13:00 Furosemide (Lasix Inj) 20 mg BID@,18 IV PUSH Last administered on 06/25/17at 08:48; Start 06/24/17 at 18:00; Stop 06/25/17 at 09:01; Status DC Albuterol/ Ipratropium (Duoneb Neb) 1 ampule Q4HR NEB NEB Last administered on 06/25/17at 11:22; Start 06/24/17 at 12:00 Furosemide (Lasix Inj) 20 mg NOW ONCE IV PUSH Last administered on 06/24/17at 15 :41; Start 06/24/17 at 15:45; Stop 06/24/17 at 15:46; Status DC Nicotine (Habitrol 14 Mg Patch.24 Hr) 1 patch DAILY T-DERMAL Last administered on 06/25/17at 14:03; Start 06/25/17 at 13:30 Miscellaneous Information 1 HS T-DERMAL ; Start 06/25/17 at 21:00 (Steve Vidal MD) Medical Decision Making MDM Remarks 76 y/o male s/p fall from ladder with T3 fracture and left sided rib fractures (Aurora Frazier) Plan Plan Remarks HOB up to 30 degrees for respiratory continue with pain control TLSO brace when oob MRI T spine to be reviewed by Dr. Vidal, further recs to follow (Aurora Frazier) Attending Statement As above. He has a severe, potentially unstable fracture at T2, with mild bone retropulsion. He is clinical examination is intact without any deficit. Given his compromised respiratory failure baseline COPD he is at very high surgical risk. I discussed with him the alternatives of attempting nonoperative treatment versus consideration to surgical procedure with an open reduction and internal fixation of the fracture. The details of the procedure alternatives risks and potential complications were explained to the patient WIll obtain upright weight-bearing xrays of T spine Pulmonary. Respiratory failure related to rib fractures, Continue aggressive pulmonary toilette, nasotracheal suction, and breathing treatments with nebulizers. Renal. Continue to monitor closely urine output, BUN and creatinine Endocrine. Continue to Monitor serial Acu checks and SSI as needed in detail ID Continue to monitor for signs of infection Continue Diabetic diet with regular insulin sliding scale before meals and at bedtime coverage Continue Protonix for stress ulcer prophylaxis Continue Jeff hose and SCD's for DVT prophylaxis. Caprini VTE Risk Assessment Caprini VTE Risk Assessment: Mod/High Risk (score >= 2) Caprini Risk Assessment Model Point Value = 1 Point Value = 2 Point Value = 3 Point Value = 5 Age 41-60 Minor surgery BMI > 25 kg/m2 Swollen legs Varicose veins or History of unexplained or recurrent spontaneous Oral contraceptives or hormone replacement Sepsis (< 1 month) Serious lung disease, including pneumonia (< 1 month) Abnormal pulmonary function Acute myocardial infarction Congestive heart failure (< 1 month) History of inflammatory bowel disease Medical patient at bed rest Age 61-74 Arthroscopic surgery Major open surgery (> 45 min) Laparoscopic surgery (> 45 min) Malignancy Confined to bed (> 72 hours) Immobilizing plaster cast Central venous access Age >= 75 History of VTE Family history of VTE Factor V Leiden Prothrombin [id number] Lupus anticoagulant Anticardiolipin antibodies Elevated serum homocysteine Heparin-induced thrombocytopenia Other congenital or acquired thrombophilia Stroke (< 1 month) Elective arthroplasty Hip, pelvis, or leg fracture Acute spinal cord injury (< 1 month) Prophylaxis Regimen Total Risk Factor Score Risk Level Prophylaxis Regimen 0-1 Low Early ambulation 2 Moderate Order ONE of the following: *Sequential Compression Device (SCD) *Heparin 5000 units SQ BID 3-4 Higher Order ONE of the following medications: *Heparin 5000 units SQ TID *Enoxaparin/Lovenox 40 mg SQ daily (WT < 150 kg, CrCl > 30 mL/min) *Enoxaparin/Lovenox 30 mg SQ daily (WT < 150 kg, CrCl > 10-29 mL/min) *Enoxaparin/Lovenox 30 mg SQ BID (WT < 150 kg, CrCl > 30 mL/min) AND/OR *Sequential Compression Device (SCD) 5 or more Highest Order ONE of the following medications: *Heparin 5000 units SQ TID (Preferred with Epidurals) *Enoxaparin/Lovenox 40 mg SQ daily (WT < 150 kg, CrCl > 30 mL/min) *Enoxaparin/Lovenox 30 mg SQ daily (WT < 150 kg, CrCl > 10-29 mL/min) *Enoxaparin/Lovenox 30 mg SQ BID (WT < 150 kg, CrCl > 30 mL/min) AND *Sequential Compression Device (SCD) The exam, history, and the medical decision-making described in the above note were completed with the assistance of the mid-level provider. I reviewed and agree with the findings presented. I attest that I had a [id number] encounter with the patient on the same day, and personally performed and documented my assessment and findings in the medical record. (Steve Vidal MD) Aurora Frazier Jun 24, 2017 17:19 Steve Vidal MD Jun 25, 2017 15:51
[2017-06-24] MEDS: FUROSEMIDE 20 MG/2 ML VIAL IV PUSH SCH (18:00)
[2017-06-25] VITALS (11 sets, daily range): BP systolic 90–134; BP diastolic 54–85; PULSE 78–94; RESP 18–25; TEMP 97.7–98.6; O2SAT 91–97
[2017-06-25] MEDS: RESP: ALBUTEROL 2.5 MG/IPRATROPIUM 0.5 MG NEB (SCH) NEB ×5 (03:28→20:33)
[2017-06-25] MEDS: CHLORHEXIDINE GLUCONATE 2 % 1 PACK (2 CLOTHS) TOP SCH (04:00)
[2017-06-25 04:55] LABS: AUTOMATED NEUTROPHIL # 8.1 TH/MM3 (1.8-7.7); BASOPHIL % 0.2 % (0.0-2.0); EOSINOPHIL # 0.2 TH/MM3 (0-0.4); EOSINOPHIL % 1.6 % (0.0-4.0); HEMOGLOBIN 12.1 GM/DL (13.0-17.0); LYMPH % 6.3 % (9.0-44.0); LYMPHOCYTE # 0.6 TH/MM3 (1.0-4.8); MEAN CORPUSCULAR HEMOGLOBIN 28.2 PG (27.0-34.0); MEAN CORPUSCULAR HGB CONC 33.6 % (32.0-36.0); MEAN PLATELET VOLUME 7.8 FL (7.0-11.0); MONO % 11.5 % (0.0-8.0); MONOCYTE # 1.2 TH/MM3 (0-0.9); NEUT % 80.4 % (16.0-70.0); PLATELET COUNT 165 TH/MM3 (150-450); RED BLOOD COUNT 4.29 MIL/MM3 (4.50-5.90); RED CELL DISTRIBUTION WIDTH 14.7 % (11.6-17.2)
[2017-06-25 05:17] LABS: CALCIUM 8.6 MG/DL (8.5-10.1); CREATININE 0.96 MG/DL (0.60-1.30)
[2017-06-25] MEDS: METHOCARBAMOL 500 MG TAB PO SCH ×3 (05:27→22:15)
--- NOTE | 2017-06-25 05:52 | RADRPT ---
EXAM DATE/TIME: 06/25/2017 04:50 [facility] COMPARISON: CHEST SINGLE AP, June 24, 2017, 4:13. INDICATIONS : Short of breath. MEDICAL HISTORY : Rib fractures. Hypertension. SURGICAL HISTORY : Abdominal aortic aneurysm repair. ENCOUNTER: Subsequent ACUITY: 4 - 6 days PAIN SCORE: Non-responsive. LOCATION: Bilateral chest FINDINGS: A single view of the chest demonstrates a bilateral patchy opacities. The cardiomediastinal contours are unremarkable. Left-sided rib fractures. CONCLUSION: Bilateral patchy infiltrates. Osvaldo Herrera MD on June 25, 2017 at 5:49 Board Certified Radiologist. This report was verified electronically.
[2017-06-25] MEDS: INSULIN NovoLIN REGULAR SUPPLEMENTAL SCALE SQ SCH ×4 (08:00→22:14)
[2017-06-25] MEDS: LIDOCAINE HCL 5% PATCH T-DERMAL SCH (08:47)
[2017-06-25] MEDS: POLYETHYLENE GLYCOL 17 GM PKG PO SCH (08:47)
[2017-06-25] MEDS: FUROSEMIDE 20 MG/2 ML VIAL IV PUSH SCH (08:48)
[2017-06-25] MEDS: PRAVASTATIN SOD 40 MG TAB PO SCH (08:48)
[2017-06-25] MEDS: LACTULOSE SYRUP 20 GM/30 ML CUP PO PRN ×2 (08:48→18:09)
[2017-06-25] MEDS: amLODIPine BESYLATE 5 MG TAB PO SCH (08:48)
[2017-06-25] MEDS: LOSARTAN 25 MG TAB PO SCH (08:48)
[2017-06-25] MEDS: GABAPENTIN 300 MG CAP PO SCH ×3 (08:48→17:44)
[2017-06-25] MEDS: DOCUSATE SODIUM 50 MG/SENNA 8.6 MG TAB PO SCH ×2 (08:48→22:15)
[2017-06-25] MEDS: ENOXAPARIN SODIUM 30 MG/0.3 ML SYRINGE SQ SCH ×2 (08:48→22:15)
[2017-06-25] MEDS: SODIUM CHLORIDE 0.9% FLUSH 10 ML FLUSH IV FLUSH PRN (08:48)
[2017-06-25] MEDS: PANTOPRAZOLE SOD 20 MG DELAYED RELEASE TAB PO SCH (08:49)
[2017-06-25] MEDS: CITALOPRAM HYDROBROMIDE 40 MG TAB PO SCH (08:49)
[2017-06-25] MEDS: REMOVE OLD PATCH T-DERMAL SCH ×2 (12:26→21:00)
[2017-06-25] MEDS: fentaNYL 50 MCG/HR PATCH T-DERMAL SCH (12:26)
[2017-06-25] MEDS: NICOTINE 14 MG/24 HR PATCH T-DERMAL SCH (14:03)
--- NOTE | 2017-06-25 14:06 | HHI.CCPN ---
Subjective Brief History 76-year-old gentleman who fell from a ladder landing on the ladder with his left side. He was evaluated in outside hospital found to have an acute T2 fracture and 3 left-sided rib fractures. He was transferred to [place] for definitive care. MRI of the thoracic and lumbar spine reveal a T3 fracture. Pt complains of left sided rib pain. He complains of back pain but mostly lower back and left sided rib pain. Patient initially was admitted to the floor however developed some degree of hypoxia and is now transferred to the ICU for further care Patient is on BiPAP mask add oxygen saturations are adequate Patient has serial rib fractures on the right and may eventually end up on the ventilator chance of which is more than 50% 24 Hour Review/Hospital Course 06/24/2017 06/22/2017 Patient was short of breath and transferred to the ICU He is awake alert and oriented Hemodynamically stable Bilateral breath sounds splinting over the right chest very tender in the right chest wall This patient has fairly significant chance to end up on the ventilator considering his age pulmonary underlying status and other morbidities Time being however patient is doing well 06/23/2017 Patient doing slightly better today He is awake alert and oriented Bilateral pulmonary excursion and patient taking better breaths We will do ABGs are slightly worse today as far as ventilation is concerned it should be noted that this patient is a CO2 retainer and probably lives on fairly high PCO2 in face of COPD and chronic hypoventilation Oxygenation slightly better and PO2 FiO2 gradient slightly improved Will adjust BiPAP mask settings as well as fitting Every effort should be made not to have to intubate this patient for once he is intubated will be very hard to extubate him Abdomen is soft patient is currently not taking diet but I will let him drink a bit between the periods of BiPAP mask 06/24/2017 Patient doing much better this morning We will removed from BiPAP mask and start on facemask 60% FiO2 Advance to diet Providing patient improves will transfer to floor tomorrow 06/25/2017 Patient doing much better this morning Remains on 40% facemask and switch to nasal cannula Bilateral good breath sounds and good pulmonary expansion however were decreased over the both lung avila consistent with severe COPD Hemodynamically stable Abdomen soft patient able to take normal oral intake Neurosurgery consult greatly appreciated. Quite agree with nonoperative management of this patient Transfer to floor Objective Vital Signs Date Time Temp Pulse Resp B/P (MAP) Pulse Ox O2 Delivery O2 Flow Rate FiO2 06/25/17 13:26 18 06/25/17 08:00 97.7 87 125/85 (98) 92 06/25/17 07:54 Nasal Cannula 6.00 06/24/17 23:41 50 Intake and Output 06/25/17 06/25/17 06/26/17 08:00 16:00 00:00 Output Total 1000 ml Balance -1000 ml Result Diagram: 06/25/17 0410 06/25/17 0410 Imaging Last 24 hours Impressions Chest X-Ray 06/25/17 0600 Signed Impressions: Service Date/Time: Sunday, June 25, 2017 04:50 - CONCLUSION: Bilateral patchy infiltrates. Osvaldo Herrera MD Assessment and Plan Attestation Critical care time 32 minutes Yogi Grey MD Jun 25, 2017 14:06
--- NOTE | 2017-06-25 15:55 | HHI.NSPN ---
Note Status Status: Progress Note Interval History Diagnosis Multiple trauma. T2 fracture Interval History 76-year-old gentleman who fell from a ladder landing on the ladder with his left side. He was evaluated in outside hospital found to have an acute T2 fracture and 3 left-sided rib fractures. He was transferred to [facility] for definitive care. MRI of the thoracic and lumbar spine reveal a T3 fracture. Pt complains of left sided rib pain. He complains of back pain but mostly lower back and left sided rib pain. 06/23/17: Pt awake and alert. Complains of mostly left rib pain and abdominal discomfort that come in spasms and waves. No radiculopathy or paresthesias in LEs. Pt remains in ICU with O2 mask. 06/24: remains on nonrebreathing with o2 supplementation. c/o of back and rib pain with movement. 06/25. Remains painful. No focal neurological deficits. Upright xrays T spine are pending Labs, Micro, & Vital Signs Results Date Time Temp Pulse Resp B/P (MAP) Pulse Ox O2 Delivery O2 Flow Rate FiO2 06/25/17 13:26 18 06/25/17 13:26 18 06/25/17 08:00 97.7 87 24 125/85 (98) 92 06/25/17 07:54 95 Nasal Cannula 6.00 06/25/17 07:00 80 06/25/17 07:00 92 Nasal Cannula 6.00 06/25/17 04:00 98.4 82 23 118/68 (85) 91 06/25/17 00:00 98.6 78 25 102/64 (77) 94 06/24/17 23:41 93 50 06/24/17 23:00 77 06/24/17 20:00 98.3 86 16 120/68 (85) 95 06/24/17 19:23 94 Nasal Cannula 6.00 06/24/17 19:00 92 Nasal Cannula 6.00 06/24/17 16:00 98.1 82 22 108/62 (77) 90 Constitutional Vital Signs Date Time Temp Pulse Resp B/P (MAP) Pulse Ox O2 Delivery O2 Flow Rate FiO2 06/25/17 13:26 18 06/25/17 13:26 18 06/25/17 08:00 97.7 87 24 125/85 (98) 92 06/25/17 07:54 95 Nasal Cannula 6.00 06/25/17 07:00 80 06/25/17 07:00 92 Nasal Cannula 6.00 06/25/17 04:00 98.4 82 23 118/68 (85) 91 06/25/17 00:00 98.6 78 25 102/64 (77) 94 06/24/17 23:41 93 50 06/24/17 23:00 77 06/24/17 20:00 98.3 86 16 120/68 (85) 95 06/24/17 19:23 94 Nasal Cannula 6.00 06/24/17 19:00 92 Nasal Cannula 6.00 06/24/17 16:00 98.1 82 22 108/62 (77) 90 Physical Exam Alert, awake on a BiPAP mask Eyes: Pupils equal. Sclera anicteric. Resp: O2 mask in place. CTA bilaterally. Heart: NSR mo murmurs. Abd: Soft positive bs Skin: No cyanosis or erythema. Cranial nerve examination: pupils to be equal, round and reactive to light. Extra-ocular movements are intact. Facial motor and sensory function are normal and symmetrical. Gross hearing decreases bilaterally Sternocleidomastoid and trapezius muscles are symmetrical. Other cranial nerves are intact. Neck is soft and supple with a good range of motion without pain. Muscle strength is normal in all muscle groups of both upper and lower extremities. Sensory examination is intact to light touch and pin prick in both the upper and lower extremities. Deep tendon reflexes are symmetrical in both upper and lower extremities. There is a bilateral plantar flexion response. Cerebellar examination is unremarkable, without deficits. Medications Current Medications Current Medications Sodium Chloride (NS Flush) 2 ml UNSCH PRN IV FLUSH FLUSH AFTER USING IV ACCESS Last administered on 06/25/17at 08:48; Start 06/20/17 at 21:30 Hydromorphone HCl (Dilaudid Pf Inj) 1 mg Q3H PRN IV PUSH BREAKTHROUGH PAIN Last administered on 06/24/17at 00:08; Start 06/20/17 at 21:45 Oxycodone HCl (Roxicodone) 5 mg Q3H PRN PO PAIN SCALE 1 TO 5 Last administered on 06/23/17at 11:45; Start 06/20/17 at 21:30 Oxycodone HCl (Roxicodone) 10 mg Q3H PRN PO PAIN SCALE 6 TO 10 Last administered on 06/25/17at 12:26; Start 06/20/17 at 21:30 Enalaprilat (Vasotec Inj) 1.25 mg Q8H PRN IV PUSH SBP>180, DBP>95; Start at 21:30 Ondansetron HCl (Zofran Inj) 4 mg Q6H PRN IV PUSH NAUSEA OR VOMITING Last administered on 06/22/17at 14:02; Start 06/20/17 at 21:30 Enoxaparin Sodium (Lovenox Inj) 30 mg Q12H SQ Last administered on 06/25/17at 08 :48; Start 06/20/17 at 22:00 Docusate Sodium (Colace) 100 mg BID PO ; Start 06/21/17 at 09:00; Stop 06/21/17 at 09:00; Status DC Magnesium Hydroxide (Milk Of Magncharles Liq) 30 ml Q6H PRN PO CONSTIPATION Last administered on 06/21/17at 09:17; Start 06/20/17 at 21:30 Miscellaneous Information 1 Q361D XX ; Start 06/20/17 at 21:30 Chlorhexidine Gluconate (Chlorhexidine 2% Cloth) 3 pack Taper DAILY@04 TOP Last administered on 06/23/17at 04:00; Start 06/21/17 at 04:00; Stop 06/17/18 at 03: 59 Chlorhexidine Gluconate (Chlorhexidine 2% Cloth) 3 pack UNSCH PRN TOP HYGIENIC CARE; Start 06/20/17 at 21:30 Dextrose (D50w (Vial) Inj) 50 ml UNSCH PRN IV PUSH HYPOGLYCEMIA-SEE COMMENTS; Start 06/20/17 at 21:30 Glucagon (Glucagon Inj) 1 mg UNSCH PRN OTHER HYPOGLYCEMIA-SEE COMMENTS; Start 06/20/17 at 21:30 Insulin Human Regular (NovoLIN R SUPPLEMENTAL SCALE) 1 ACHS SLIDING SCALE SQ Last administered on 06/25/17at 12:25; Start 06/21/17 at 08:00 Methocarbamol (Robaxin) 500 mg Q8HR PO Last administered on 06/25/17 12:25; Start 06/21/17 at 08:15 Lidocaine HCl (Lidoderm 5% Patch.12 Hr) 1 patch DAILY T-DERMAL Last administered on 06/25/17 08:47; Start 06/21/17 at 09:00 Senna/Docusate Sodium (Brandy-Colace) 1 tab BID PO Last administered on 08:48; Start 06/21/17 at 09:00 Lactulose (Lactulose Liq) 30 ml DAILY PRN PO No BM in 2 days Last administered on 06/25/17 08:48; Start 06/21/17 at 07:45 Polyethylene Glycol (Miralax) 17 gm DAILY PO Last administered on 06/25/17 08: 47; Start 06/21/17 at 09:00 Amlodipine Besylate (Norvasc) 5 mg DAILY PO Last administered on 06/25/17 08: 48; Start 06/21/17 at 09:00 Losartan Potassium (Cozaar) 25 mg DAILY PO Last administered on 06/25/17 08:48 ; Start 06/21/17 at 09:00 Pantoprazole Sodium (Protonix) 20 mg DAILY PO Last administered on 06/25/17 08 :49; Start 06/21/17 at 09:00 Pravastatin Sodium (Pravachol) 40 mg DAILY PO Last administered on 06/25/17 08 :48; Start 06/21/17 at 09:00 Citalopram Hydrobromide (CeleXA) 40 mg DAILY PO Last administered on 06/25/17 08:49; Start 06/21/17 at 09:00 Albuterol/ Ipratropium (Duoneb Neb) 1 ampule Q2HR NEB PRN NEB SHORTNESS OF BREATH Last administered on 06/22/17 04:34; Start 06/21/17 at 07:45 Albuterol/ Ipratropium (Duoneb Neb) 1 ampule Q4HR WHILE AWAKE NEB NEB Last administered on 06/24/17 08:22; Start 06/21/17 at 14:00; Stop 06/24/17 at 09:27; Status DC Sodium Chloride 1,000 ml @ 100 mls/hr Q10H IV Last administered on 06/24/17 02 :34; Start 06/22/17 at 12:00; Stop 06/24/17 at 09:25; Status DC Fentanyl (Duragesic 50 Mcg Patch.72 Hr) 1 patch Q3D T-DERMAL Last administered on 06/25/17 12:26; Start 06/22/17 at 13:00 Miscellaneous Information 1 Q3D T-DERMAL Last administered on 06/25/17 12:26; Start 06/22/17 at 13:00 Gabapentin (Neurontin) 300 mg TID PO Last administered on 06/25/17 12:25; Start 06/23/17 at 13:00 Furosemide (Lasix Inj) 20 mg BID@09,18 IV PUSH Last administered on 06/25/17 08:48; Start 06/24/17 at 18:00; Stop 06/25/17 at 09:01; Status DC Albuterol/ Ipratropium (Duoneb Neb) 1 ampule Q4HR NEB NEB Last administered on 06/25/17 11:22; Start 06/24/17 at 12:00 Furosemide (Lasix Inj) 20 mg NOW ONCE IV PUSH Last administered on 06/24/17at 15 :41; Start 06/24/17 at 15:45; Stop 06/24/17 at 15:46; Status DC Nicotine (Habitrol 14 Mg Patch.24 Hr) 1 patch DAILY T-DERMAL Last administered on 06/25/17 14:03; Start 06/25/17 at 13:30 Miscellaneous Information 1 HS T-DERMAL ; Start 06/25/17 at 21:00 Attending Statement I again explained to Mr Lima that he has a severe, potentially unstable fracture at T2, with mild bone retropulsion. He is clinical examination is intact without any deficit. Given his compromised respiratory failure baseline COPD he is at very high surgical risk. I again discussed with him the alternatives of attempting nonoperative treatment versus consideration to surgical procedure with an open reduction and internal fixation of the fracture. The details of the procedure alternatives risks and potential complications were explained to the patient WIll obtain upright weight-bearing xrays of T spine Pulmonary. Respiratory failure related to rib fractures, Continue aggressive pulmonary toilette, nasotracheal suction, and breathing treatments with nebulizers. Renal. Continue to monitor closely urine output, BUN and creatinine Endocrine. Continue to Monitor serial Acu checks and SSI as needed in detail ID Continue to monitor for signs of infection Continue Diabetic diet with regular insulin sliding scale before meals and at bedtime coverage Continue Protonix for stress ulcer prophylaxis Continue Jeff hose and SCD's for DVT prophylaxis. Caprini VTE Risk Assessment Caprini VTE Risk Assessment: Mod/High Risk (score >= 2) Caprini Risk Assessment Model Point Value = 1 Point Value = 2 Point Value = 3 Point Value = 5 Age 41-60 Minor surgery BMI > 25 kg/m2 Swollen legs Varicose veins or History of unexplained or recurrent spontaneous Oral contraceptives or hormone replacement Sepsis (< 1 month) Serious lung disease, including pneumonia (< 1 month) Abnormal pulmonary function Acute myocardial infarction Congestive heart failure (< 1 month) History of inflammatory bowel disease Medical patient at bed rest Age 61-74 Arthroscopic surgery Major open surgery (> 45 min) Laparoscopic surgery (> 45 min) Malignancy Confined to bed (> 72 hours) Immobilizing plaster cast Central venous access Age >= 75 History of VTE Family history of VTE Factor V Leiden Prothrombin [id number] Lupus anticoagulant Anticardiolipin antibodies Elevated serum homocysteine Heparin-induced thrombocytopenia Other congenital or acquired thrombophilia Stroke (< 1 month) Elective arthroplasty Hip, pelvis, or leg fracture Acute spinal cord injury (< 1 month) Prophylaxis Regimen Total Risk Factor Score Risk Level Prophylaxis Regimen 0-1 Low Early ambulation 2 Moderate Order ONE of the following: *Sequential Compression Device (SCD) *Heparin 5000 units SQ BID 3-4 Higher Order ONE of the following medications: *Heparin 5000 units SQ TID *Enoxaparin/Lovenox 40 mg SQ daily (WT < 150 kg, CrCl > 30 mL/min) *Enoxaparin/Lovenox 30 mg SQ daily (WT < 150 kg, CrCl > 10-29 mL/min) *Enoxaparin/Lovenox 30 mg SQ BID (WT < 150 kg, CrCl > 30 mL/min) AND/OR *Sequential Compression Device (SCD) 5 or more Highest Order ONE of the following medications: *Heparin 5000 units SQ TID (Preferred with Epidurals) *Enoxaparin/Lovenox 40 mg SQ daily (WT < 150 kg, CrCl > 30 mL/min) *Enoxaparin/Lovenox 30 mg SQ daily (WT < 150 kg, CrCl > 10-29 mL/min) *Enoxaparin/Lovenox 30 mg SQ BID (WT < 150 kg, CrCl > 30 mL/min) AND *Sequential Compression Device (SCD) Steve Vidal MD Jun 25, 2017 15:55
[2017-06-25] MEDS ORDERED: LACTULOSE SYRUP 20 GM/30 ML CUP PO ONE (18:30)
[2017-06-26] VITALS (8 sets, daily range): BP systolic 114–138; BP diastolic 56–77; PULSE 80–90; RESP 18–20; TEMP 98–98.7; O2SAT 90–97
[2017-06-26] MEDS: RESP: ALBUTEROL 2.5 MG/IPRATROPIUM 0.5 MG NEB (SCH) NEB ×7 (04:09→23:55)
[2017-06-26] MEDS: METHOCARBAMOL 500 MG TAB PO SCH ×3 (06:19→21:00)
[2017-06-26] MEDS ORDERED: BISACODYL EC 5 MG TABEC PO ONE (07:30)
[2017-06-26] MEDS ORDERED: BISACODYL 10 MG SUPP RECTAL ONE (07:30)
[2017-06-26 08:33] LABS: AUTOMATED NEUTROPHIL # 6.7 TH/MM3 (1.8-7.7); BASOPHIL % 0.5 % (0.0-2.0); EOSINOPHIL # 0.2 TH/MM3 (0-0.4); EOSINOPHIL % 2.2 % (0.0-4.0); HEMATOCRIT 37.9 % (39.0-51.0); HEMOGLOBIN 12.6 GM/DL (13.0-17.0); LYMPH % 7.2 % (9.0-44.0); LYMPHOCYTE # 0.6 TH/MM3 (1.0-4.8); MEAN CELL VOLUME 82.5 FL (80.0-100.0); MEAN CORPUSCULAR HEMOGLOBIN 27.4 PG (27.0-34.0); MEAN CORPUSCULAR HGB CONC 33.3 % (32.0-36.0); MEAN PLATELET VOLUME 7.9 FL (7.0-11.0); MONO % 10.4 % (0.0-8.0); MONOCYTE # 0.9 TH/MM3 (0-0.9); NEUT % 79.7 % (16.0-70.0); PLATELET COUNT 193 TH/MM3 (150-450); RED CELL DISTRIBUTION WIDTH 14.7 % (11.6-17.2); WHITE BLOOD COUNT 8.4 TH/MM3 (4.0-11.0)
[2017-06-26] MEDS: LACTULOSE SYRUP 20 GM/30 ML CUP PO SCH (08:45)
[2017-06-26] MEDS: CITALOPRAM HYDROBROMIDE 40 MG TAB PO SCH (08:46)
[2017-06-26] MEDS: MAGNESIUM HYDROXIDE SUSP 30 ML CUP PO SCH ×2 (08:46→20:42)
[2017-06-26] MEDS: DOCUSATE SODIUM 50 MG/SENNA 8.6 MG TAB PO SCH ×2 (08:46→20:42)
[2017-06-26] MEDS: LOSARTAN 25 MG TAB PO SCH (08:46)
[2017-06-26] MEDS: GABAPENTIN 300 MG CAP PO SCH ×3 (08:46→17:26)
[2017-06-26] MEDS: PRAVASTATIN SOD 40 MG TAB PO SCH (08:46)
[2017-06-26] MEDS: POLYETHYLENE GLYCOL 17 GM PKG PO SCH (08:46)
[2017-06-26] MEDS: amLODIPine BESYLATE 5 MG TAB PO SCH (08:47)
[2017-06-26] MEDS: PANTOPRAZOLE SOD 20 MG DELAYED RELEASE TAB PO SCH (08:47)
[2017-06-26] MEDS: NICOTINE 14 MG/24 HR PATCH T-DERMAL SCH (08:48)
[2017-06-26] MEDS: ENOXAPARIN SODIUM 30 MG/0.3 ML SYRINGE SQ SCH ×2 (08:48→20:42)
[2017-06-26] MEDS: INSULIN NovoLIN REGULAR SUPPLEMENTAL SCALE SQ SCH ×4 (08:50→23:30)
[2017-06-26] MEDS: LIDOCAINE HCL 5% PATCH T-DERMAL SCH (08:50)
[2017-06-26 08:59] LABS: BICARBONATE 26.5 MEQ/L (21.0-32.0); CALCIUM 8.7 MG/DL (8.5-10.1); CREATININE 0.97 MG/DL (0.60-1.30)
--- NOTE | 2017-06-26 11:48 | HHI.PR ---
Subjective Subjective Notes PTD: 6 Sound asleep on trauma rounds. No distress noted. Objective Vitals/I&O Vital Signs Date Time Temp Pulse Resp B/P (MAP) Pulse Ox O2 Delivery O2 Flow Rate FiO2 06/26/17 11:41 98.1 88 20 116/73 (87) 90 06/26/17 08:45 Nasal Cannula 4.00 Humidified 06/24/17 23:41 50 Labs Laboratory Tests Test 06/26/17 07:40 White Blood Count 8.4 Red Blood Count 4.60 Hemoglobin 12.6 Hematocrit 37.9 Mean Corpuscular Volume 82.5 Mean Corpuscular Hemoglobin 27.4 Mean Corpuscular Hemoglobin Concent 33.3 Red Cell Distribution Width 14.7 Platelet Count 193 Mean Platelet Volume 7.9 Neutrophils (%) (Auto) 79.7 Lymphocytes (%) (Auto) 7.2 Monocytes (%) (Auto) 10.4 Eosinophils (%) (Auto) 2.2 Basophils (%) (Auto) 0.5 Neutrophils # (Auto) 6.7 Lymphocytes # (Auto) 0.6 Monocytes # (Auto) 0.9 Eosinophils # (Auto) 0.2 Basophils # (Auto) 0.0 CBC Comment DIFF FINAL Differential Comment Blood Urea Nitrogen 18 Creatinine 0.97 Random Glucose 149 Calcium Level 8.7 Sodium Level 140 Potassium Level 4.1 Chloride Level 106 Carbon Dioxide Level 26.5 Anion Gap 8 Estimat Glomerular Filtration Rate 76 Radiology Last 48 hours Impressions Chest X-Ray 06/25/17 0600 Signed Impressions: Service Date/Time: Sunday, June 25, 2017 04:50 - CONCLUSION: Bilateral patchy infiltrates. Osvaldo Herrera MD Narrative Exam GENERAL: This is a 76-year-old male lying in bed asleep. No distress noted. SKIN: Warm and dry. HEAD: Atraumatic. Normocephalic. EYES: PERRLA ENT: No nasal bleeding or discharge. Mucous membranes pink and moist. NECK: Trachea midline. No JVD. CARDIOVASCULAR: Regular rate and rhythm. RESPIRATORY: O2 nasal cannula. No accessory muscle use. Lungs are clear to auscultation w/ occasional scattered wheezes. Breath sounds equal bilaterally. No distress or dyspnea. GASTROINTESTINAL: BS + x 4 quads. Abdomen soft, non-tender, nondistended. MUSCULOSKELETAL: Extremities without cyanosis, or edema. + peripheral pulses x 4 extremities. Warm with good capillary refill and sensation. MAEW. NEUROLOGICAL: Asleep. A/P Problem List: (1) Multiple rib fractures ICD Codes: S22.49XA - Multiple fractures of ribs, unspecified side, initial encounter for closed fracture Status: Acute (2) Pulmonary contusion ICD Codes: S27.329A - Contusion of lung, unspecified, initial encounter Status: Acute (3) Fracture of T2 vertebra ICD Codes: S22.029A - Unspecified fracture of second thoracic vertebra, initial encounter for closed fracture Status: Acute Assessment and Plan HOOPA: This is a 76-year-old male who sustained a fall. He fell off a ladder from an unknown height and landed on his left side. No LOC. Transferred from an outside facility for trauma services. INJURIES: LEFT rib fxs (5-7) LEFT pulmonary contusion T2 fx PMHx: DM, HLD, COPD. [employer] use, HTN, depression Procedures: Consults: Neurosurgery. Rehab medicine. Case management. Diet: ADA diet. Tolerating po diet. Encourage good po intake with each meal. Pulmonary: Encourage good pulmonary toileting. IS and acapella at bedside and pt encouraged to use. Rationale for use explained to patient, and verbalized understanding. EZpap with Nebs. PAIN Management: Oxycodone 5-10mg q 3h. Dilaudid 1mg q 3h. Robaxin 500 mg q8h. Neurontin 300 mg TID. Lidoderm patch. Fentanyl patch 50 mcg. Activity: OOB. PT and OT ordered. (TLSO) GI prophylaxis: Omeprazole Bowel regimen: Brandy-colace, MOM. Miralax, Lactulose. LBM: 0 DVT prophylaxis: Mechanical VTE with SCDs. Chemical management with Lovenox 30 mg BID SQ. DC Planning: Case management consulted for assistance with final discharge disposition. Physical therapy recommends rehab. Awaiting SNF authorization. Emotional support provided to patient at bedside and plan of care discussed. Discussed with RN at bedside. Discussed pt condition and plan of care with collaborating trauma surgeon. Patient is hemodynamically stable and being managed on the med/surg floor. The trauma team will round each day, and evaluate plan of care on a daily basis. LEFT rib fxs (5-7) LEFT pulmonary contusion Oxygen as needed Supportive care Aggressive pulmonary toileting Chest x-ray as needed Chest x-ray this a.m. shows bilateral infiltrates Pain management PT and OT ordered Encourage out of bed Lovenox for DVT prophylaxis T2 fx Compression fracture T3 Neurosurgery consulted and assisting in management care MRI T-spine -compression fracture T3 with 5 mm retropulsion of the posterior cortex Neurosurgery to obtain weightbearing x-rays of T-spine Pain management Head of bed elevated 30 Encourage out of bed TLSO brace when out of bed PT and OT ordered Awaiting further plans from neurosurgery HTN Diabetes HDL Tobacco abuse Depression Vital signs every 4 hours ADA diet Sliding scale insulin AC / HS Medium scale Resumed home medications Losartan, Norvasc, Pravachol, Celexa Nicotine patch added Remarks She was seen and examined with the nurse practitioner, pain control, pulmonary toilet ,neurosurgery plan pending Problem Qualifiers (1) Multiple rib fractures: Qualified Codes: S22.42XA - Multiple fractures of ribs, left side, initial encounter for closed fracture (2) Pulmonary contusion: Qualified Codes: S27.321A - Contusion of lung, unilateral, initial encounter (3) Fracture of T2 vertebra: Qualified Codes: S22.029A - Unspecified fracture of second thoracic vertebra, initial encounter for closed fracture Zaria Burger Jun 26, 2017 11:48 Casi Cuellar MD Jun 26, 2017 15:02
--- NOTE | 2017-06-26 15:18 | HHI.NSPN ---
(Aurora Frazier) Note Status Status: Progress Note (Aurora Frazier) Interval History Interval History 76-year-old gentleman who fell from a ladder landing on the ladder with his left side. He was evaluated in outside hospital found to have an acute T2 fracture and 3 left-sided rib fractures. He was transferred to [place] for definitive care. MRI of the thoracic and lumbar spine reveal a T3 fracture. Pt complains of left sided rib pain. He complains of back pain but mostly lower back and left sided rib pain. 06/23/17: Pt awake and alert. Complains of mostly left rib pain and abdominal discomfort that come in spasms and waves. No radiculopathy or paresthesias in LEs. Pt remains in ICU with O2 mask. 06/24: remains on nonrebreathing with o2 supplementation. c/o of back and rib pain with movement. 06/26: Stable upper thoracic pain. No other changes neurologically. (Aurora Frazier) Labs, Micro, & Vital Signs Results Date Time Temp Pulse Resp B/P (MAP) Pulse Ox O2 Delivery O2 Flow Rate FiO2 06/26/17 11:41 98.1 88 20 116/73 (87) 90 06/26/17 08:45 Nasal Cannula 4.00 Humidified 06/26/17 08:26 93 Nasal Cannula 4.00 06/26/17 07:40 98.2 80 20 120/70 (87) 90 06/26/17 04:11 97 Nasal Cannula 6.00 06/26/17 00:28 98.0 83 18 130/77 (94) 95 06/25/17 20:50 Nasal Cannula 6.00 Humidified 06/25/17 20:36 97 Nasal Cannula 6.00 06/25/17 20:28 97.7 93 18 134/74 (94) 91 06/25/17 17:23 98.5 85 18 129/73 (91) 92 06/25/17 16:00 98.3 82 18 90/54 (66) 91 Constitutional Vital Signs Date Time Temp Pulse Resp B/P (MAP) Pulse Ox O2 Delivery O2 Flow Rate FiO2 06/26/17 11:41 98.1 88 20 116/73 (87) 90 06/26/17 08:45 Nasal Cannula 4.00 Humidified 06/26/17 08:26 93 Nasal Cannula 4.00 06/26/17 07:40 98.2 80 20 120/70 (87) 90 06/26/17 04:11 97 Nasal Cannula 6.00 06/26/17 00:28 98.0 83 18 130/77 (94) 95 06/25/17 20:50 Nasal Cannula 6.00 Humidified 06/25/17 20:36 97 Nasal Cannula 6.00 06/25/17 20:28 97.7 93 18 134/74 (94) 91 06/25/17 17:23 98.5 85 18 129/73 (91) 92 06/25/17 16:00 98.3 82 18 90/54 (66) 91 (Aurora Frazier) Review of Systems Musculoskeletal: COMPLAINS OF: Back pain (Aurora Frazier) Physical Exam Alert, awake Eyes: Pupils equal. Sclera anicteric. Resp: CTA bilaterally. Heart: NSR mo murmurs. Abd: Soft positive bs Skin: No cyanosis or erythema. Cranial nerve examination: pupils to be equal, round and reactive to light. Extra-ocular movements are intact. Facial motor and sensory function are normal and symmetrical. Gross hearing decreases bilaterally Sternocleidomastoid and trapezius muscles are symmetrical. Other cranial nerves are intact. Neck is soft and supple Muscle strength is normal in all muscle groups of both upper and lower extremities. Sensory examination is intact to light touch and pin prick in both the upper and lower extremities. Deep tendon reflexes are symmetrical in both upper and lower extremities. There is a bilateral plantar flexion response. Cerebellar examination is unremarkable, without deficits. (Aurora Frazier) general. Alert, awake Eyes: Pupils equal. Sclera anicteric. Resp: CTA bilaterally. Heart: NSR mo murmurs. Abd: Soft positive bs Skin: No cyanosis or erythema. Cranial nerve examination: pupils to be equal, round and reactive to light. Extra-ocular movements are intact. Facial motor and sensory function are normal and symmetrical. Gross hearing decreases bilaterally Sternocleidomastoid and trapezius muscles are symmetrical. Other cranial nerves are intact. Neck is soft and supple Muscle strength is normal in all muscle groups of both upper and lower extremities. Sensory examination is intact to light touch and pin prick in both the upper and lower extremities. Deep tendon reflexes are symmetrical in both upper and lower extremities. There is a bilateral plantar flexion response. Cerebellar examination is unremarkable, without deficits. (Steve Vidal MD) Medical Decision Making MDM Remarks 76 y/o male s/p fall from ladder with T3 fracture and left sided rib fractures (Aurora Frazier) Plan Plan Remarks Continue nonsurgical treatment with TLSO when out of bed for upright weightbearing x-rays with TLSO continue with pain control (Aurora Frazier) Attending Statement As above I again explained to Mr Clarence that he has a severe, potentially unstable fracture at T2, with mild bone retropulsion. He is clinical examination is intact without any deficit. Given his compromised respiratory failure baseline COPD he is at very high surgical risk. I again discussed with him the alternatives of attempting nonoperative treatment versus consideration to surgical procedure with an open reduction and internal fixation of the fracture. The details of the procedure alternatives risks and potential complications were explained to the patient I reviewed hisupright weight-bearing xrays of T spine Pulmonary. Respiratory failure related to rib fractures, Continue aggressive pulmonary toilette, nasotracheal suction, and breathing treatments with nebulizers. Renal. Continue to monitor closely urine output, BUN and creatinine Endocrine. Continue to Monitor serial Acu checks and SSI as needed in detail ID Continue to monitor for signs of infection Continue Diabetic diet with regular insulin sliding scale before meals and at bedtime coverage Continue Protonix for stress ulcer prophylaxis Continue Jeff hose and SCD's for DVT prophylaxis. Caprini VTE Risk Assessment Caprini VTE Risk Assessment: Mod/High Risk (score >= 2) Caprini Risk Assessment Model Point Value = 1 Point Value = 2 Point Value = 3 Point Value = 5 Age 41-60 Minor surgery BMI > 25 kg/m2 Swollen legs Varicose veins or History of unexplained or recurrent spontaneous Oral contraceptives or hormone replacement Sepsis (< 1 month) Serious lung disease, including pneumonia (< 1 month) Abnormal pulmonary function Acute myocardial infarction Congestive heart failure (< 1 month) History of inflammatory bowel disease Medical patient at bed rest Age 61-74 Arthroscopic surgery Major open surgery (> 45 min) Laparoscopic surgery (> 45 min) Malignancy Confined to bed (> 72 hours) Immobilizing plaster cast Central venous access Age >= 75 History of VTE Family history of VTE Factor V Leiden Prothrombin [id number] Lupus anticoagulant Anticardiolipin antibodies Elevated serum homocysteine Heparin-induced thrombocytopenia Other congenital or acquired thrombophilia Stroke (< 1 month) Elective arthroplasty Hip, pelvis, or leg fracture Acute spinal cord injury (< 1 month) Prophylaxis Regimen Total Risk Factor Score Risk Level Prophylaxis Regimen 0-1 Low Early ambulation 2 Moderate Order ONE of the following: *Sequential Compression Device (SCD) *Heparin 5000 units SQ BID 3-4 Higher Order ONE of the following medications: *Heparin 5000 units SQ TID *Enoxaparin/Lovenox 40 mg SQ daily (WT < 150 kg, CrCl > 30 mL/min) *Enoxaparin/Lovenox 30 mg SQ daily (WT < 150 kg, CrCl > 10-29 mL/min) *Enoxaparin/Lovenox 30 mg SQ BID (WT < 150 kg, CrCl > 30 mL/min) AND/OR *Sequential Compression Device (SCD) 5 or more Highest Order ONE of the following medications: *Heparin 5000 units SQ TID (Preferred with Epidurals) *Enoxaparin/Lovenox 40 mg SQ daily (WT < 150 kg, CrCl > 30 mL/min) *Enoxaparin/Lovenox 30 mg SQ daily (WT < 150 kg, CrCl > 10-29 mL/min) *Enoxaparin/Lovenox 30 mg SQ BID (WT < 150 kg, CrCl > 30 mL/min) AND *Sequential Compression Device (SCD) The exam, history, and the medical decision-making described in the above note were completed with the assistance of the mid-level provider. I reviewed and agree with the findings presented. I attest that I had a [id number] encounter with the patient on the same day, and personally performed and documented my assessment and findings in the medical record. (Steve Vidal MD) Aurora Frazier Jun 26, 2017 15:18 Steve Vidal MD Jun 30, 2017 20:36
--- NOTE | 2017-06-26 15:21 | RADRPT ---
EXAM DATE/TIME: 06/26/2017 14:36 [place] COMPARISON: CT THORAX W/O CONTRAST, June 23, 2017, 15:37. MRI THORACIC SPINE W/O CONTRAST, June 21, 2017, 15:1 3. INDICATIONS : Upright weight bearing with TLSO brace. MEDICAL HISTORY : T2 fracture, rib fractures SURGICAL HISTORY : AAA repair, mesh lung repair ENCOUNTER: Initial ACUITY: 4 - 6 days PAIN SCORE: Non-responsive. LOCATION: Bilateral thoracic spine FINDINGS: There is evidence of a moderate compression deformity involving the T3 vertebral body. No other compr ession deformity is are noted. CONCLUSION: Moderate compression deformity involving the T3 vertebral body. Neymar Epps MD on June 26, 2017 at 15:12 Board Certified Radiologist. This report was verified electronically.
[2017-06-26] MEDS: REMOVE OLD PATCH T-DERMAL SCH (20:57)
[2017-06-27] VITALS (8 sets, daily range): BP systolic 111–135; BP diastolic 62–74; PULSE 45–89; RESP 16–20; TEMP 97.6–98.2; O2SAT 92–97
[2017-06-27] MEDS: RESP: ALBUTEROL 2.5 MG/IPRATROPIUM 0.5 MG NEB (SCH) NEB ×5 (03:10→21:49)
[2017-06-27] MEDS: METHOCARBAMOL 500 MG TAB PO SCH ×3 (05:45→21:29)
[2017-06-27] MEDS ORDERED: ENOX30P SQ (06:59)
[2017-06-27] MEDS ORDERED: NICO14DI23 T-DERMAL (06:59)
[2017-06-27] MEDS ORDERED: NEUR300C PO (06:59)
[2017-06-27] MEDS ORDERED: MAGN30S PO (06:59)
[2017-06-27] MEDS ORDERED: METH500T3 PO (06:59)
[2017-06-27] MEDS ORDERED: LIDO1ADH4 T-DERMAL (06:59)
[2017-06-27] MEDS ORDERED: Albuterol-Ipratropium Neb NEB (06:59)
[2017-06-27] MEDS ORDERED: Lactulose Liq PO (06:59)
[2017-06-27] MEDS ORDERED: NOVORP2 SQ (06:59)
[2017-06-27] MEDS ORDERED: PERI PO (06:59)
[2017-06-27] MEDS ORDERED: WALKER WHEELS/F1 MIS (07:01)
[2017-06-27] MEDS ORDERED: BISACODYL 10 MG SUPP RECTAL ONE (08:00)
[2017-06-27] MEDS: INSULIN NovoLIN REGULAR SUPPLEMENTAL SCALE SQ SCH ×4 (08:00→22:54)
[2017-06-27] MEDS ORDERED: BISACODYL EC 5 MG TABEC PO ONE (08:00)
[2017-06-27] MEDS: DOCUSATE SODIUM 50 MG/SENNA 8.6 MG TAB PO SCH ×2 (08:52→21:29)
[2017-06-27] MEDS: MAGNESIUM HYDROXIDE SUSP 30 ML CUP PO SCH ×2 (08:52→21:29)
[2017-06-27] MEDS: NICOTINE 14 MG/24 HR PATCH T-DERMAL SCH (08:52)
[2017-06-27] MEDS: LACTULOSE SYRUP 20 GM/30 ML CUP PO SCH (08:52)
[2017-06-27] MEDS: LOSARTAN 25 MG TAB PO SCH (08:52)
[2017-06-27] MEDS: PRAVASTATIN SOD 40 MG TAB PO SCH (08:53)
[2017-06-27] MEDS: PANTOPRAZOLE SOD 20 MG DELAYED RELEASE TAB PO SCH (08:53)
[2017-06-27] MEDS: GABAPENTIN 300 MG CAP PO SCH ×3 (08:53→17:31)
[2017-06-27] MEDS: CITALOPRAM HYDROBROMIDE 40 MG TAB PO SCH (08:53)
[2017-06-27] MEDS: POLYETHYLENE GLYCOL 17 GM PKG PO SCH (08:53)
[2017-06-27] MEDS: amLODIPine BESYLATE 5 MG TAB PO SCH (08:53)
[2017-06-27] MEDS: LIDOCAINE HCL 5% PATCH T-DERMAL SCH (08:54)
[2017-06-27] MEDS: ENOXAPARIN SODIUM 30 MG/0.3 ML SYRINGE SQ SCH ×2 (08:54→21:29)
[2017-06-27] MEDS ORDERED: OXYC-392 PO (12:13)
--- NOTE | 2017-06-27 15:06 | HHI.PR ---
Subjective Subjective Notes PTD: 7 Patient lying in bed. No distress noted. No complaints offered. Objective Vitals/I&O Vital Signs Date Time Temp Pulse Resp B/P (MAP) Pulse Ox O2 Delivery O2 Flow Rate FiO2 06/27/17 12:00 98.0 86 18 135/74 (94) 92 06/27/17 09:04 Nasal Cannula 4.00 06/24/17 23:41 50 Narrative Exam GENERAL: This is a 76-year-old male lying in bed. No distress noted. SKIN: Warm and dry. HEAD: Atraumatic. Normocephalic. EYES: PERRLA ENT: No nasal bleeding or discharge. Mucous membranes pink and moist. NECK: Trachea midline. No JVD. CARDIOVASCULAR: Regular rate and rhythm. RESPIRATORY: O2 nasal cannula. No accessory muscle use. Lungs are clear to auscultation w/ occasional scattered wheezes. Breath sounds equal bilaterally. No distress or dyspnea. GASTROINTESTINAL: BS + x 4 quads. Abdomen soft, non-tender, nondistended. MUSCULOSKELETAL: Extremities without cyanosis, or edema. + peripheral pulses x 4 extremities. Warm with good capillary refill and sensation. MAEW. NEUROLOGICAL: Asleep. A/P Problem List: (1) Multiple rib fractures ICD Codes: S22.49XA - Multiple fractures of ribs, unspecified side, initial encounter for closed fracture Status: Acute (2) Pulmonary contusion ICD Codes: S27.329A - Contusion of lung, unspecified, initial encounter Status: Acute (3) Fracture of T2 vertebra ICD Codes: S22.029A - Unspecified fracture of second thoracic vertebra, initial encounter for closed fracture Status: Acute Assessment and Plan [place]: This is a 76-year-old male who sustained a fall. He fell off a ladder from an unknown height and landed on his left side. No LOC. Transferred from an outside facility for trauma services. INJURIES: LEFT rib fxs (5-7) LEFT pulmonary contusion T2 fx PMHx: DM, HLD, COPD. [employer] use, HTN, depression Procedures: Consults: Neurosurgery. Rehab medicine. Case management. Diet: ADA diet. Tolerating po diet. Encourage good po intake with each meal. Pulmonary: Encourage good pulmonary toileting. IS and acapella at bedside and pt encouraged to use. Rationale for use explained to patient, and verbalized understanding. EZpap with Nebs. PAIN Management: Oxycodone 5-10mg q 3h. Dilaudid 1mg q 3h. Robaxin 500 mg q8h. Neurontin 300 mg TID. Lidoderm patch. Fentanyl patch 50 mcg. Activity: OOB. PT and OT ordered. (TLSO) GI prophylaxis: Omeprazole Bowel regimen: Brandy-colace, MOM. Miralax, Lactulose. LBM: 06/27. DVT prophylaxis: Mechanical VTE with SCDs. Chemical management with Lovenox 30 mg BID SQ. DC Planning: Case management consulted for assistance with final discharge disposition. Physical therapy recommends rehab. Patient has been accepted at [facility]. Patient is clear from a trauma surgery standpoint to discharge to rehab. Emotional support provided to patient at bedside and plan of care discussed. Discussed with RN at bedside. Discussed pt condition and plan of care with collaborating trauma surgeon. Patient is hemodynamically stable and being managed on the med/surg floor. The trauma team will round each day, and evaluate plan of care on a daily basis. LEFT rib fxs (5-7) LEFT pulmonary contusion Oxygen as needed Supportive care Aggressive pulmonary toileting Chest x-ray as needed Pain management PT and OT ordered Encourage out of bed Lovenox for DVT prophylaxis T2 fx Compression fracture T3 Neurosurgery consulted and assisting in management care MRI T-spine -compression fracture T3 with 5 mm retropulsion of the posterior cortex T-spine upright weightbearing x-ray shows moderate compression deformity Collaborated with neurosurgery. Injury remains nonoperative Pain management Head of bed elevated 30 Encourage out of bed TLSO brace when out of bed PT and OT ordered Patient is clear from a neurosurgery standpoint to discharge to rehab Follow-up with neurosurgery outpatient HTN Diabetes HDL Tobacco abuse Depression Vital signs every 4 hours ADA diet Sliding scale insulin AC / HS Medium scale Resumed home medications Losartan, Norvasc, Pravachol, Celexa Nicotine patch added Remarks Seen and examined during rounds, continue pain control DVT prophylaxis physical therapy discharge planning Problem Qualifiers (1) Multiple rib fractures: Qualified Codes: S22.42XA - Multiple fractures of ribs, left side, initial encounter for closed fracture (2) Pulmonary contusion: Qualified Codes: S27.321A - Contusion of lung, unilateral, initial encounter (3) Fracture of T2 vertebra: Qualified Codes: S22.029A - Unspecified fracture of second thoracic vertebra, initial encounter for closed fracture Zaria Burger Jun 27, 2017 15:06 Casi Cuellar MD Jun 29, 2017 15:35
--- NOTE | 2017-06-27 16:39 | HHI.NSPN ---
(Aurora Frazier) Note Status Status: Progress Note (Aurora Frazier) Interval History Interval History 76-year-old gentleman who fell from a ladder landing on the ladder with his left side. He was evaluated in outside hospital found to have an acute T2 fracture and 3 left-sided rib fractures. He was transferred to [facility] for definitive care. MRI of the thoracic and lumbar spine reveal a T3 fracture. Pt complains of left sided rib pain. He complains of back pain but mostly lower back and left sided rib pain. 06/23/17: Pt awake and alert. Complains of mostly left rib pain and abdominal discomfort that come in spasms and waves. No radiculopathy or paresthesias in LEs. Pt remains in ICU with O2 mask. 06/24: remains on nonrebreathing with o2 supplementation. c/o of back and rib pain with movement. 06/26: Stable upper thoracic pain. No other changes neurologically. 06/27: upright xrays completed. stable upper thoracic pain. (Aurora Frazier) Labs, Micro, & Vital Signs Results Date Time Temp Pulse Resp B/P (MAP) Pulse Ox O2 Delivery O2 Flow Rate FiO2 06/27/17 16:00 97.8 83 18 111/71 (84) 97 06/27/17 12:00 98.0 86 18 135/74 (94) 92 06/27/17 09:04 92 Nasal Cannula 4.00 06/27/17 08:45 91 Nasal Cannula 4.00 Humidified 06/27/17 08:00 98.2 45 18 131/62 (85) 94 06/27/17 05:30 98.0 64 20 115/70 (85) 94 06/27/17 00:00 97.6 69 19 118/67 (84) 93 06/26/17 21:01 92 Nasal Cannula 4.00 Humidified 06/26/17 20:49 98.7 90 18 114/56 (75) 92 06/26/17 19:50 92 Nasal Cannula 4.00 Constitutional Vital Signs Date Time Temp Pulse Resp B/P (MAP) Pulse Ox O2 Delivery O2 Flow Rate FiO2 06/27/17 16:00 97.8 83 18 111/71 (84) 97 06/27/17 12:00 98.0 86 18 135/74 (94) 92 06/27/17 09:04 92 Nasal Cannula 4.00 06/27/17 08:45 91 Nasal Cannula 4.00 Humidified 06/27/17 08:00 98.2 45 18 131/62 (85) 94 06/27/17 05:30 98.0 64 20 115/70 (85) 94 06/27/17 00:00 97.6 69 19 118/67 (84) 93 06/26/17 21:01 92 Nasal Cannula 4.00 Humidified 06/26/17 20:49 98.7 90 18 114/56 (75) 92 06/26/17 19:50 92 Nasal Cannula 4.00 (Aurora Frazier) Review of Systems Musculoskeletal: COMPLAINS OF: Back pain (Aurora Frazier) Physical Exam Alert, awake Eyes: Pupils equal. Sclera anicteric. Resp: CTA bilaterally. Heart: NSR mo murmurs. Abd: Soft positive bs Skin: No cyanosis or erythema. Cranial nerve examination: pupils to be equal, round and reactive to light. Extra-ocular movements are intact. Facial motor and sensory function are normal and symmetrical. Gross hearing decreases bilaterally Sternocleidomastoid and trapezius muscles are symmetrical. Other cranial nerves are intact. Neck is soft and supple Muscle strength is normal in all muscle groups of both upper and lower extremities. Sensory examination is intact to light touch and pin prick in both the upper and lower extremities. Deep tendon reflexes are symmetrical in both upper and lower extremities. There is a bilateral plantar flexion response. Cerebellar examination is unremarkable, without deficits. (Aurora Frazier) Mr Wing is Alert, awake Cranial nerve examination: pupils to be equal, round and reactive to light. Extra-ocular movements are intact. Facial motor and sensory function are normal and symmetrical. Gross hearing decreases bilaterally Sternocleidomastoid and trapezius muscles are symmetrical. Other cranial nerves are intact. Neck is soft and supple Muscle strength is normal in all muscle groups of both upper and lower extremities. Sensory examination is intact to light touch and pin prick in both the upper and lower extremities. Deep tendon reflexes are symmetrical in both upper and lower extremities. There is a bilateral plantar flexion response. Cerebellar examination is unremarkable Eyes: Pupils equal. Sclera anicteric. Resp: CTA bilaterally. Heart: NSR mo murmurs. Abd: Soft positive bs Skin: No cyanosis or erythema. (Steve Vidal MD) Medications Current Medications Current Medications Medications (Trade) Dose Ordered Sig/Dalton Route PRN Reason Start Time Stop Time Status Last Admin Dose Admin Sodium Chloride (NS Flush) 2 ml UNSCH PRN IV FLUSH FLUSH AFTER USING IV ACCESS 06/20/17 21:30 06/25/17 08:48 Hydromorphone HCl (Dilaudid Pf Inj) 1 mg Q3H PRN IV PUSH BREAKTHROUGH PAIN 06/20/17 21:45 06/24/17 00:08 Oxycodone HCl (Roxicodone) 5 mg Q3H PRN PO PAIN SCALE 1 TO 5 06/20/17 21:30 06/23/17 11:45 Oxycodone HCl (Roxicodone) 10 mg Q3H PRN PO PAIN SCALE 6 TO 10 06/20/17 21:30 06/27/17 08:54 Enalaprilat (Vasotec Inj) 1.25 mg Q8H PRN IV PUSH SBP>180, DBP>95 06/20/17 21:30 Ondansetron HCl (Zofran Inj) 4 mg Q6H PRN IV PUSH NAUSEA OR VOMITING 06/20/17 21:30 06/22/17 14:02 Enoxaparin Sodium (Lovenox Inj) 30 mg Q12H SQ 06/20/17 22:00 06/27/17 08:54 Dextrose (D50w (Vial) Inj) 50 ml UNSCH PRN IV PUSH HYPOGLYCEMIA-SEE COMMENTS 06/20/17 21:30 Glucagon (Glucagon Inj) 1 mg UNSCH PRN OTHER HYPOGLYCEMIA-SEE COMMENTS 06/20/17 21:30 Insulin Human Regular (NovoLIN R SUPPLEMENTAL SCALE) 1 ACHS SLIDING SCALE SQ 06/21/17 08:00 06/27/17 12:45 Methocarbamol (Robaxin) 500 mg Q8HR PO 06/21/17 08:15 06/27/17 12:44 Lidocaine HCl (Lidoderm 5% Patch.12 Hr) 1 patch DAILY T-DERMAL 06/21/17 09:00 06/27/17 08:54 Senna/Docusate Sodium (Brandy-Colace) 1 tab BID PO 06/21/17 09:00 06/27/17 08:52 Polyethylene Glycol (Miralax) 17 gm DAILY PO 06/21/17 09:00 06/27/17 08:53 Amlodipine Besylate (Norvasc) 5 mg DAILY PO 06/21/17 09:00 06/27/17 08:53 Losartan Potassium (Cozaar) 25 mg DAILY PO 06/21/17 09:00 06/27/17 08:52 Pantoprazole Sodium (Protonix) 20 mg DAILY PO 06/21/17 09:00 06/27/17 08:53 Pravastatin Sodium (Pravachol) 40 mg DAILY PO 06/21/17 09:00 06/27/17 08:53 Citalopram Hydrobromide (CeleXA) 40 mg DAILY PO 06/21/17 09:00 06/27/17 08:53 Albuterol/ Ipratropium (Duoneb Neb) 1 ampule Q2HR NEB PRN NEB SHORTNESS OF BREATH 06/21/17 07:45 06/22/17 04:34 Fentanyl (Duragesic 50 Mcg Patch.72 Hr) 1 patch Q3D T-DERMAL 06/22/17 13:00 06/25/17 12:26 Miscellaneous Information 1 Q3D T-DERMAL 06/22/17 13:00 06/25/17 12:26 Gabapentin (Neurontin) 300 mg TID PO 06/23/17 13:00 06/27/17 12:44 Albuterol/ Ipratropium (Duoneb Neb) 1 ampule Q4HR NEB NEB 06/24/17 12:00 06/27/17 12:59 Nicotine (Habitrol 14 Mg Patch.24 Hr) 1 patch DAILY T-DERMAL 06/25/17 13:30 06/27/17 08:52 Miscellaneous Information 1 HS T-DERMAL 06/25/17 21:00 06/26/17 20:57 Lactulose (Lactulose Liq) 30 ml DAILY PO 06/26/17 09:00 06/27/17 08:52 Magnesium Hydroxide (Milk Of Magnesia Liq) 30 ml BID PO 06/26/17 09:00 06/27/17 08:52 (Aurora Frazier) Current Medications Current Medications Sodium Chloride (NS Flush) 2 ml UNSCH PRN IV FLUSH FLUSH AFTER USING IV ACCESS Last administered on 06/25/17at 08:48; Start 06/20/17 at 21:30; Stop 06/28/17 at 12:07; Status DC Hydromorphone HCl (Dilaudid Pf Inj) 1 mg Q3H PRN IV PUSH BREAKTHROUGH PAIN Last administered on 06/24/17at 00:08; Start 06/20/17 at 21:45; Stop 06/28/17 at 12 :07; Status DC Oxycodone HCl (Roxicodone) 5 mg Q3H PRN PO PAIN SCALE 1 TO 5 Last administered on 06/23/17at 11:45; Start 06/20/17 at 21:30; Stop 06/28/17 at 12:07; Status DC Oxycodone HCl (Roxicodone) 10 mg Q3H PRN PO PAIN SCALE 6 TO 10 Last administered on 06/27/17at 21:30; Start 06/20/17 at 21:30; Stop 06/28/17 at 12:07 ; Status DC Enalaprilat (Vasotec Inj) 1.25 mg Q8H PRN IV PUSH SBP>180, DBP>95; Start at 21:30; Stop 06/28/17 at 12:07; Status DC Ondansetron HCl (Zofran Inj) 4 mg Q6H PRN IV PUSH NAUSEA OR VOMITING Last administered on 06/22/17at 14:02; Start 06/20/17 at 21:30; Stop 06/28/17 at 12:07; Status DC Enoxaparin Sodium (Lovenox Inj) 30 mg Q12H SQ Last administered on 06/28/17at 09 :56; Start 06/20/17 at 22:00; Stop 06/28/17 at 12:07; Status DC Docusate Sodium (Colace) 100 mg BID PO ; Start 06/21/17 at 09:00; Stop 06/21/17 at 09:00; Status DC Magnesium Hydroxide (Milk Of Magnesia Liq) 30 ml Q6H PRN PO CONSTIPATION Last administered on 06/21/17at 09:17; Start 06/20/17 at 21:30; Stop 06/25/17 at 22:49; Status DC Miscellaneous Information 1 Q361D XX ; Start 06/20/17 at 21:30; Stop 06/25/17 at 22:49; Status DC Chlorhexidine Gluconate (Chlorhexidine 2% Cloth) 3 pack Taper DAILY@04 TOP Last administered on 06/23/17at 04:00; Start 06/21/17 at 04:00; Stop 06/25/17 at 22 :49; Status DC Chlorhexidine Gluconate (Chlorhexidine 2% Cloth) 3 pack UNSCH PRN TOP HYGIENIC CARE; Start 06/20/17 at 21:30; Stop 06/25/17 at 22:49; Status DC Dextrose (D50w (Vial) Inj) 50 ml UNSCH PRN IV PUSH HYPOGLYCEMIA-SEE COMMENTS; Start 06/20/17 at 21:30; Stop 06/28/17 at 12:07; Status DC Glucagon (Glucagon Inj) 1 mg UNSCH PRN OTHER HYPOGLYCEMIA-SEE COMMENTS; Start 06/20/17 at 21:30; Stop 06/28/17 at 12:07; Status DC Insulin Human Regular (NovoLIN R SUPPLEMENTAL SCALE) 1 ACHS SLIDING SCALE SQ Last administered on 06/27/17at 22:54; Start 06/21/17 at 08:00; Stop 06/28/17 at 12:07; Status DC Methocarbamol (Robaxin) 500 mg Q8HR PO Last administered on 06/28/17at 06:09; Start 06/21/17 at 08:15; Stop 06/28/17 at 12:07; Status DC Lidocaine HCl (Lidoderm 5% Patch.12 Hr) 1 patch DAILY T-DERMAL Last administered on 06/28/17at 08:22; Start 06/21/17 at 09:00; Stop 06/28/17 at 12:07 ; Status DC Senna/Docusate Sodium (Brandy-Colace) 1 tab BID PO Last administered on at 08:20; Start 06/21/17 at 09:00; Stop 06/28/17 at 12:07; Status DC Lactulose (Lactulose Liq) 30 ml DAILY PRN PO No BM in 2 days Last administered on 06/25/17at 08:48; Start 06/21/17 at 07:45; Stop 06/25/17 at 22:49; Status DC Polyethylene Glycol (Miralax) 17 gm DAILY PO Last administered on 06/28/17 08: 21; Start 06/21/17 at 09:00; Stop 06/28/17 at 12:07; Status DC Amlodipine Besylate (Norvasc) 5 mg DAILY PO Last administered on 06/28/17 08: 21; Start 06/21/17 at 09:00; Stop 06/28/17 at 12:07; Status DC Losartan Potassium (Cozaar) 25 mg DAILY PO Last administered on 06/28/17 08:20 ; Start 06/21/17 at 09:00; Stop 06/28/17 at 12:07; Status DC Pantoprazole Sodium (Protonix) 20 mg DAILY PO Last administered on 06/28/17 08 :21; Start 06/21/17 at 09:00; Stop 06/28/17 at 12:07; Status DC Pravastatin Sodium (Pravachol) 40 mg DAILY PO Last administered on 06/28/17 08 :21; Start 06/21/17 at 09:00; Stop 06/28/17 at 12:07; Status DC Citalopram Hydrobromide (CeleXA) 40 mg DAILY PO Last administered on 06/28/17 08:21; Start 06/21/17 at 09:00; Stop 06/28/17 at 12:07; Status DC Albuterol/ Ipratropium (Duoneb Neb) 1 ampule Q2HR NEB PRN NEB SHORTNESS OF BREATH Last administered on 06/22/17at 04:34; Start 06/21/17 at 07:45; Stop at 12:07; Status DC Albuterol/ Ipratropium (Duoneb Neb) 1 ampule Q4HR WHILE AWAKE NEB NEB Last administered on 06/24/17 08:22; Start 06/21/17 at 14:00; Stop 06/24/17 at 09:27; Status DC Sodium Chloride 1,000 ml @ 100 mls/hr Q10H IV Last administered on 06/24/17at 02 :34; Start 06/22/17 at 12:00; Stop 06/24/17 at 09:25; Status DC Fentanyl (Duragesic 50 Mcg Patch.72 Hr) 1 patch Q3D T-DERMAL Last administered on 06/25/17at 12:26; Start 06/22/17 at 13:00; Stop 06/28/17 at 12:07 ; Status DC Miscellaneous Information 1 Q3D T-DERMAL Last administered on 06/25/17at 12:26; Start 06/22/17 at 13:00; Stop 06/28/17 at 12:07; Status DC Gabapentin (Neurontin) 300 mg TID PO Last administered on 06/28/17 08:21; Start 06/23/17 at 13:00; Stop 06/28/17 at 12:07; Status DC Furosemide (Lasix Inj) 20 mg BID@ IV PUSH Last administered on 06/25/17at 08:48; Start 06/24/17 at 18:00; Stop 06/25/17 at 09:01; Status DC Albuterol/ Ipratropium (Duoneb Neb) 1 ampule Q4HR NEB NEB Last administered on 06/28/17at 09:42; Start 06/24/17 at 12:00; Stop 06/28/17 at 11:59; Status DC Furosemide (Lasix Inj) 20 mg NOW ONCE IV PUSH Last administered on 06/24/17at 15 :41; Start 06/24/17 at 15:45; Stop 06/24/17 at 15:46; Status DC Nicotine (Habitrol 14 Mg Patch.24 Hr) 1 patch DAILY T-DERMAL Last administered on 06/28/17at 08:20; Start 06/25/17 at 13:30; Stop 06/28/17 at 12:07; Status DC Miscellaneous Information 1 HS T-DERMAL Last administered on 06/26/17at 20:57; Start 06/25/17 at 21:00; Stop 06/28/17 at 12:07; Status DC Lactulose (Lactulose Liq) 30 ml ONCE ONCE PO Last administered on 06/25/17at 18 :13; Start 06/25/17 at 18:30; Stop 06/25/17 at 18:31; Status DC Lactulose (Lactulose Liq) 30 ml DAILY PO Last administered on 06/28/17at 08:21; Start 06/26/17 at 09:00; Stop 06/28/17 at 12:07; Status DC Magnesium Hydroxide (Milk Of Magnesia Liq) 30 ml BID PO Last administered on 4/ 13/18at 08:21; Start 06/26/17 at 09:00; Stop 06/28/17 at 12:07; Status DC Bisacodyl (Dulcolax Ec) 10 mg ONCE ONCE PO ; Start 06/26/17 at 07:30; Stop 02/02 at 07:31; Status DC Bisacodyl (Dulcolax Supp) 10 mg ONCE ONCE RECTAL ; Start 06/26/17 at 07:30; Stop 06/26/17 at 07:31; Status DC Bisacodyl (Dulcolax Ec) 10 mg ONCE ONCE PO Last administered on 06/27/17at 08: 53; Start 06/27/17 at 08:00; Stop 06/27/17 at 08:01; Status DC Bisacodyl (Dulcolax Supp) 10 mg ONCE ONCE RECTAL Last administered on at 08:53; Start 06/27/17 at 08:00; Stop 06/27/17 at 08:01; Status DC Current Medications Sodium Chloride (NS Flush) 2 ml UNSCH PRN IV FLUSH FLUSH AFTER USING IV ACCESS Last administered on 06/25/17at 08:48; Start 06/20/17 at 21:30; Stop 06/28/17 at 12:07; Status DC Hydromorphone HCl (Dilaudid Pf Inj) 1 mg Q3H PRN IV PUSH BREAKTHROUGH PAIN Last administered on 06/24/17at 00:08; Start 06/20/17 at 21:45; Stop 06/28/17 at 12 :07; Status DC Oxycodone HCl (Roxicodone) 5 mg Q3H PRN PO PAIN SCALE 1 TO 5 Last administered on 06/23/17at 11:45; Start 06/20/17 at 21:30; Stop 06/28/17 at 12:07; Status DC Oxycodone HCl (Roxicodone) 10 mg Q3H PRN PO PAIN SCALE 6 TO 10 Last administered on 06/27/17at 21:30; Start 06/20/17 at 21:30; Stop 06/28/17 at 12:07 ; Status DC Enalaprilat (Vasotec Inj) 1.25 mg Q8H PRN IV PUSH SBP>180, DBP>95; Start at 21:30; Stop 06/28/17 at 12:07; Status DC Ondansetron HCl (Zofran Inj) 4 mg Q6H PRN IV PUSH NAUSEA OR VOMITING Last administered on 06/22/17at 14:02; Start 06/20/17 at 21:30; Stop 06/28/17 at 12:07; Status DC Enoxaparin Sodium (Lovenox Inj) 30 mg Q12H SQ Last administered on 06/28/17at 09 :56; Start 06/20/17 at 22:00; Stop 06/28/17 at 12:07; Status DC Docusate Sodium (Colace) 100 mg BID PO ; Start 06/21/17 at 09:00; Stop 06/21/17 at 09:00; Status DC Magnesium Hydroxide (Milk Of Magnesia Liq) 30 ml Q6H PRN PO CONSTIPATION Last administered on 06/21/17at 09:17; Start 06/20/17 at 21:30; Stop 06/25/17 at 22:49; Status DC Miscellaneous Information 1 Q361D XX ; Start 06/20/17 at 21:30; Stop 06/25/17 at 22:49; Status DC Chlorhexidine Gluconate (Chlorhexidine 2% Cloth) 3 pack Taper DAILY@04 TOP Last administered on 06/23/17at 04:00; Start 06/21/17 at 04:00; Stop 06/25/17 at 22 :49; Status DC Chlorhexidine Gluconate (Chlorhexidine 2% Cloth) 3 pack UNSCH PRN TOP HYGIENIC CARE; Start 06/20/17 at 21:30; Stop 06/25/17 at 22:49; Status DC Dextrose (D50w (Vial) Inj) 50 ml UNSCH PRN IV PUSH HYPOGLYCEMIA-SEE COMMENTS; Start 06/20/17 at 21:30; Stop 06/28/17 at 12:07; Status DC Glucagon (Glucagon Inj) 1 mg UNSCH PRN OTHER HYPOGLYCEMIA-SEE COMMENTS; Start 06/20/17 at 21:30; Stop 06/28/17 at 12:07; Status DC Insulin Human Regular (NovoLIN R SUPPLEMENTAL SCALE) 1 ACHS SLIDING SCALE SQ Last administered on 06/27/17at 22:54; Start 06/21/17 at 08:00; Stop 06/28/17 at 12:07; Status DC Methocarbamol (Robaxin) 500 mg Q8HR PO Last administered on 06/28/17at 06:09; Start 06/21/17 at 08:15; Stop 06/28/17 at 12:07; Status DC Lidocaine HCl (Lidoderm 5% Patch.12 Hr) 1 patch DAILY T-DERMAL Last administered on 06/28/17at 08:22; Start 06/21/17 at 09:00; Stop 06/28/17 at 12:07 ; Status DC Senna/Docusate Sodium (Brandy-Colace) 1 tab BID PO Last administered on 08:20; Start 06/21/17 at 09:00; Stop 06/28/17 at 12:07; Status DC Lactulose (Lactulose Liq) 30 ml DAILY PRN PO No BM in 2 days Last administered on 06/25/17at 08:48; Start 06/21/17 at 07:45; Stop 06/25/17 at 22:49; Status DC Polyethylene Glycol (Miralax) 17 gm DAILY PO Last administered on 06/28/17 08: 21; Start 06/21/17 at 09:00; Stop 06/28/17 at 12:07; Status DC Amlodipine Besylate (Norvasc) 5 mg DAILY PO Last administered on 06/28/17 08: 21; Start 06/21/17 at 09:00; Stop 06/28/17 at 12:07; Status DC Losartan Potassium (Cozaar) 25 mg DAILY PO Last administered on 06/28/17 08:20 ; Start 06/21/17 at 09:00; Stop 06/28/17 at 12:07; Status DC Pantoprazole Sodium (Protonix) 20 mg DAILY PO Last administered on 06/28/17 08 :21; Start 06/21/17 at 09:00; Stop 06/28/17 at 12:07; Status DC Pravastatin Sodium (Pravachol) 40 mg DAILY PO Last administered on 06/28/17 08 :21; Start 06/21/17 at 09:00; Stop 06/28/17 at 12:07; Status DC Citalopram Hydrobromide (CeleXA) 40 mg DAILY PO Last administered on 06/28/17 08:21; Start 06/21/17 at 09:00; Stop 06/28/17 at 12:07; Status DC Albuterol/ Ipratropium (Duoneb Neb) 1 ampule Q2HR NEB PRN NEB SHORTNESS OF BREATH Last administered on 06/22/17 04:34; Start 06/21/17 at 07:45; Stop at 12:07; Status DC Albuterol/ Ipratropium (Duoneb Neb) 1 ampule Q4HR WHILE AWAKE NEB NEB Last administered on 06/24/17 08:22; Start 06/21/17 at 14:00; Stop 06/24/17 at 09:27; Status DC Sodium Chloride 1,000 ml @ 100 mls/hr Q10H IV Last administered on 06/24/17 02 :34; Start 06/22/17 at 12:00; Stop 06/24/17 at 09:25; Status DC Fentanyl (Duragesic 50 Mcg Patch.72 Hr) 1 patch Q3D T-DERMAL Last administered on 06/25/17 12:26; Start 06/22/17 at 13:00; Stop 06/28/17 at 12:07 ; Status DC Miscellaneous Information 1 Q3D T-DERMAL Last administered on 06/25/17 12:26; Start 06/22/17 at 13:00; Stop 06/28/17 at 12:07; Status DC Gabapentin (Neurontin) 300 mg TID PO Last administered on 06/28/17 08:21; Start 06/23/17 at 13:00; Stop 06/28/17 at 12:07; Status DC Furosemide (Lasix Inj) 20 mg BID@,18 IV PUSH Last administered on 06/25/17at 08:48; Start 06/24/17 at 18:00; Stop 06/25/17 at 09:01; Status DC Albuterol/ Ipratropium (Duoneb Neb) 1 ampule Q4HR NEB NEB Last administered on 06/28/17at 09:42; Start 06/24/17 at 12:00; Stop 06/28/17 at 11:59; Status DC Furosemide (Lasix Inj) 20 mg NOW ONCE IV PUSH Last administered on 06/24/17 15 :41; Start 06/24/17 at 15:45; Stop 06/24/17 at 15:46; Status DC Nicotine (Habitrol 14 Mg Patch.24 Hr) 1 patch DAILY T-DERMAL Last administered on 06/28/17 08:20; Start 06/25/17 at 13:30; Stop 06/28/17 at 12:07; Status DC Miscellaneous Information 1 HS T-DERMAL Last administered on 06/26/17at 20:57; Start 06/25/17 at 21:00; Stop 06/28/17 at 12:07; Status DC Lactulose (Lactulose Liq) 30 ml ONCE ONCE PO Last administered on 06/25/17at 18 :13; Start 06/25/17 at 18:30; Stop 06/25/17 at 18:31; Status DC Lactulose (Lactulose Liq) 30 ml DAILY PO Last administered on 06/28/17at 08:21; Start 06/26/17 at 09:00; Stop 06/28/17 at 12:07; Status DC Magnesium Hydroxide (Milk Of Magnesia Liq) 30 ml BID PO Last administered on at 08:21; Start 06/26/17 at 09:00; Stop 06/28/17 at 12:07; Status DC Bisacodyl (Dulcolax Ec) 10 mg ONCE ONCE PO ; Start 06/26/17 at 07:30; Stop 02/02 at 07:31; Status DC Bisacodyl (Dulcolax Supp) 10 mg ONCE ONCE RECTAL ; Start 06/26/17 at 07:30; Stop 06/26/17 at 07:31; Status DC Bisacodyl (Dulcolax Ec) 10 mg ONCE ONCE PO Last administered on 06/27/17at 08: 53; Start 06/27/17 at 08:00; Stop 06/27/17 at 08:01; Status DC Bisacodyl (Dulcolax Supp) 10 mg ONCE ONCE RECTAL Last administered on at 08:53; Start 06/27/17 at 08:00; Stop 06/27/17 at 08:01; Status DC (Steve Vidal MD) Medical Decision Making MDM Remarks 76 y/o male s/p fall from ladder with T3 fracture and left sided rib fractures Last Impressions Thoracic Spine X-Ray 06/26/17 0000 Signed Impressions: Service Date/Time: Monday, June 26, 2017 14:36 - CONCLUSION: Moderate compression deformity involving the T3 vertebral body. Neymar Epps MD Chest X-Ray 06/25/17 0600 Signed Impressions: Service Date/Time: Sunday, June 25, 2017 04:50 - CONCLUSION: Bilateral patchy infiltrates. Osvaldo Herrera MD Chest CT 06/23/17 0000 Signed Impressions: Service Date/Time: Friday, June 23, 2017 15:37 - CONCLUSION: Patchy airspace disease, bibasilar atelectasis and tiny bilateral pleural effusions are all mostly worse in the interim. Left rib fractures are again noted. No pneumothorax. Rik Rangel MD Upper Extremity Ultrasound 06/22/17 0000 Signed Impressions: Service Date/Time: Thursday, June 22, 2017 13:23 - CONCLUSION: No evidence of DVT. Srikanth Andersen MD Thoracic Spine MRI 06/21/17 0000 Signed Impressions: Service Date/Time: Wednesday, June 21, 2017 15:13 - CONCLUSION: 1. Moderate acute compression fracture of the T3 superior endplate with prominent, approximately 5 mm, retropulsion of the posterior cortex resulting in complete effacement of the anterior thecal sac and flattening of the cervical cord without cord edema. 2. Subtle prominence of the central cervical cord canal at C5-7. This is generally considered benign. Followup MRI examination may be performed to document stability as clinically appropriate. Abdulkadir Marte MD Lumbar Spine MRI 06/21/17 0000 Signed Impressions: Service Date/Time: Wednesday, June 21, 2017 15:13 - CONCLUSION: 1. Multilevel degenerative disease with some loss of disc height disc desiccation from L1-2 through L4-5 with relative sparing at the lumbosacral junction. 2. Broad-based disc bulge at L3-4 slightly more prominent leftward. In combination with left-sided ligamentum flavum and facet hypertrophy, there is encroachment of the lateral recess which appears to compromise the left nerve rootlets of L4 as they move laterally. 3. Predominantly due to facet hypertrophy, narrowing the right neural foramen at L4-5 which appear severe enough to compromise the right L4 nerve root. 4. Spinal canal and neural foramina appear to be adequate all remaining levels. Sampson Ibarra MD (Aurora Frazier) Plan Plan Remarks continue nonsurgical treatment with TLSO when out of bed continue with pain control clear to dc to rehab from NRS standpoint follow up in office (Aurora Frazier) Attending Statement As above Continue nonoperative treatment with TLSO brace Alternatives of treatment were discussed COPD management Pain control with narcotic analgesics The exam, history, and the medical decision-making described in the above note were completed with the assistance of the mid-level provider. I reviewed and agree with the findings presented. I attest that I had a [id number] encounter with the patient on the same day, and personally performed and documented my assessment and findings in the medical record. (Steve Vidal MD) Aurora Frazier Jun 27, 2017 16:39 Steve Vidal MD Jun 30, 2017 21:13
[2017-06-27] MEDS: REMOVE OLD PATCH T-DERMAL SCH (21:00)
[2017-06-28] VITALS: BP 120/71; PULSE 77; RESP 16; TEMP 97.5; O2SAT 96
[2017-06-28] MEDS: RESP: ALBUTEROL 2.5 MG/IPRATROPIUM 0.5 MG NEB (SCH) NEB ×3 (00:29→09:42)
[2017-06-28 04:00] VITALS: BP 146/82; PULSE 81; RESP 16; TEMP 97.6; O2SAT 93
[2017-06-28] MEDS: METHOCARBAMOL 500 MG TAB PO SCH (06:09)
[2017-06-28 07:58] VITALS: BP 115/67; PULSE 81; RESP 18; TEMP 97.9; O2SAT 92
[2017-06-28] MEDS: INSULIN NovoLIN REGULAR SUPPLEMENTAL SCALE SQ SCH (08:18)
[2017-06-28] MEDS: LOSARTAN 25 MG TAB PO SCH (08:20)
[2017-06-28] MEDS: DOCUSATE SODIUM 50 MG/SENNA 8.6 MG TAB PO SCH (08:20)
[2017-06-28] MEDS: NICOTINE 14 MG/24 HR PATCH T-DERMAL SCH (08:20)
[2017-06-28] MEDS: GABAPENTIN 300 MG CAP PO SCH (08:21)
[2017-06-28] MEDS: PANTOPRAZOLE SOD 20 MG DELAYED RELEASE TAB PO SCH (08:21)
[2017-06-28] MEDS: POLYETHYLENE GLYCOL 17 GM PKG PO SCH (08:21)
[2017-06-28] MEDS: LACTULOSE SYRUP 20 GM/30 ML CUP PO SCH (08:21)
[2017-06-28] MEDS: CITALOPRAM HYDROBROMIDE 40 MG TAB PO SCH (08:21)
[2017-06-28] MEDS: MAGNESIUM HYDROXIDE SUSP 30 ML CUP PO SCH (08:21)
[2017-06-28] MEDS: PRAVASTATIN SOD 40 MG TAB PO SCH (08:21)
[2017-06-28] MEDS: amLODIPine BESYLATE 5 MG TAB PO SCH (08:21)
[2017-06-28] MEDS: LIDOCAINE HCL 5% PATCH T-DERMAL SCH (08:22)
[2017-06-28 09:43] VITALS: O2SAT 93
[2017-06-28] MEDS: ENOXAPARIN SODIUM 30 MG/0.3 ML SYRINGE SQ SCH (09:56)
--- NOTE | 2017-06-28 11:56 | HHI.DS ---
Discharge Summary Admission Date Jun 20, 2017 at 21:10 Discharge Date: Jun 28, 2017 Admitting Diagnosis (1) Multiple rib fractures ICD Codes: S22.49XA - Multiple fractures of ribs, unspecified side, initial encounter for closed fracture Diagnosis: Principal Status: Acute (2) Pulmonary contusion ICD Codes: S27.329A - Contusion of lung, unspecified, initial encounter Diagnosis: Principal Status: Acute (3) Fracture of T2 vertebra ICD Codes: S22.029A - Unspecified fracture of second thoracic vertebra, initial encounter for closed fracture Diagnosis: Principal Status: Acute Brief History Fall CBC/BMP: 06/26/17 0740 06/26/17 0740 Significant Findings Laboratory Tests Test 06/26/17 07:40 Hemoglobin 12.6 GM/DL (13.0-17.0) Hematocrit 37.9 % (39.0-51.0) Neutrophils (%) (Auto) 79.7 % (16.0-70.0) Lymphocytes (%) (Auto) 7.2 % (9.0-44.0) Monocytes (%) (Auto) 10.4 % (0.0-8.0) Lymphocytes # (Auto) 0.6 TH/MM3 (1.0-4.8) Random Glucose 149 MG/DL (74-106) Estimat Glomerular Filtration Rate 76 ML/MIN (>89) Imaging Last Impressions Thoracic Spine X-Ray 06/26/17 0000 Signed Impressions: Service Date/Time: Monday, June 26, 2017 14:36 - CONCLUSION: Moderate compression deformity involving the T3 vertebral body. Neymar Epsp MD Chest X-Ray 06/25/17 0600 Signed Impressions: Service Date/Time: Sunday, June 25, 2017 04:50 - CONCLUSION: Bilateral patchy infiltrates. Osvaldo Herrera MD Chest CT 06/23/17 0000 Signed Impressions: Service Date/Time: Friday, June 23, 2017 15:37 - CONCLUSION: Patchy airspace disease, bibasilar atelectasis and tiny bilateral pleural effusions are all mostly worse in the interim. Left rib fractures are again noted. No pneumothorax. Rik Rangel MD Upper Extremity Ultrasound 06/22/17 0000 Signed Impressions: Service Date/Time: Thursday, June 22, 2017 13:23 - CONCLUSION: No evidence of DVT. Srikanth Andersen MD Thoracic Spine MRI 06/21/17 0000 Signed Impressions: Service Date/Time: Wednesday, June 21, 2017 15:13 - CONCLUSION: 1. Moderate acute compression fracture of the T3 superior endplate with prominent, approximately 5 mm, retropulsion of the posterior cortex resulting in complete effacement of the anterior thecal sac and flattening of the cervical cord without cord edema. 2. Subtle prominence of the central cervical cord canal at C5-7. This is generally considered benign. Followup MRI examination may be performed to document stability as clinically appropriate. Abdulkadir Marte MD Lumbar Spine MRI 06/21/17 0000 Signed Impressions: Service Date/Time: Wednesday, June 21, 2017 15:13 - CONCLUSION: 1. Multilevel degenerative disease with some loss of disc height disc desiccation from L1-2 through L4-5 with relative sparing at the lumbosacral junction. 2. Broad-based disc bulge at L3-4 slightly more prominent leftward. In combination with left-sided ligamentum flavum and facet hypertrophy, there is encroachment of the lateral recess which appears to compromise the left nerve rootlets of L4 as they move laterally. 3. Predominantly due to facet hypertrophy, narrowing the right neural foramen at L4-5 which appear severe enough to compromise the right L4 nerve root. 4. Spinal canal and neural foramina appear to be adequate all remaining levels. Sampson Ibarra MD PE at Discharge Patient discharged to [facility] before daily trauma rounds. Hospital Course COMANCHE: This is a 76-year-old male who sustained a fall. He fell off a ladder from an unknown height and landed on his left side. No LOC. Transferred from an outside facility for trauma services. INJURIES: LEFT rib fxs (5-7) LEFT pulmonary contusion T2 fx PMHx: DM, HLD, COPD. [employer] use, HTN, depression Procedures: Consults: Neurosurgery. Rehab medicine. Case management. The patient is now tolerating a po diet. Eating and drinking well. Pain is being managed well with PO pain medications, all hospital medications will continue at rehab. Pt is having regular bowel movements, and have recommended to patient to continue with stool softeners while taking narcotic pain medications to prevent constipation. Pt has been participating in PT and OT while admitted at [facility] and has been ambulating with their assistance and independently . PT and OT will continue at rehab. All follow up appointments have been provided and discussed with the patient. It is recommended that the patient keeps all his follow up appointments for continued recovery. Patient's condition and plan of care discussed with collaborating trauma surgeon. He is agreeable to plan for discharge today. Therefore, the patient is stable to be safely discharged to [facility] from a trauma surgery standpoint. Thank you for allowing us to participate in his care. We wish Neymar the best in his recovery. LEFT rib fxs (5-7) LEFT pulmonary contusion Oxygen as needed Supportive care Aggressive pulmonary toileting Chest x-ray as needed Pain management PT and OT ordered Encourage out of bed Lovenox for DVT prophylaxis T2 fx Compression fracture T3 Neurosurgery consulted and assisting in management care MRI T-spine -compression fracture T3 with 5 mm retropulsion of the posterior cortex T-spine upright weightbearing x-ray shows moderate compression deformity Collaborated with neurosurgery. Injury remains nonoperative Pain management Head of bed elevated 30 Encourage out of bed TLSO brace when out of bed PT and OT ordered Patient is clear from a neurosurgery standpoint to discharge to rehab Follow-up with neurosurgery outpatient HTN Diabetes HDL Tobacco abuse Depression Vital signs every 4 hours ADA diet Sliding scale insulin AC / HS Medium scale Resumed home medications Losartan, Norvasc, Pravachol, Celexa Nicotine patch Pt Condition on Discharge: Stable Discharge Disposition: Discharge to SNF Discharge Instructions DIET: Follow Instructions for: Diabetic Diet Activities you can perform: Regular-No Restrictions Activities to Avoid: Driving for 24 hrs, Concussion Sports, Contact Sports, Lifting/Bending, Prolonged Standing, Strenuous Activity, Driving Other Activity Instructions: No driving while taking narcotic pain meds TLSO brace when OOB. Zaria Burger Jun 28, 2017 11:56
[2017-06-28 12:00] VITALS: BP 119/64; PULSE 75; RESP 18; TEMP 98; O2SAT 91
== END 2017-06-28 12:07 | DRG 208 ==
LOC: NEDDLT 21:00 → N06A 21:10 → N03A 06-22 07:33 → N05B 06-25 16:58
PROVIDERS: ADMIT Surgery; ATTEND Surgery
PROC: 2W35X3Z Immobilization of Back using Brace (ICD-10-PCS; 2017-06-20)
PROC: 5A1945Z Respiratory Ventilation, 24-96 Consecutive Hours (ICD-10-PCS; principal; 2017-06-22)
DX: S22.42XA Multiple fractures of ribs, left side, initial encounter for closed fracture (principal); J96.91 Respiratory failure, unspecified with hypoxia; S22.039A Unspecified fracture of third thoracic vertebra, initial encounter for closed fracture; E87.2 Acidosis; J44.9 Chronic obstructive pulmonary disease, unspecified; S27.321A Contusion of lung, unilateral, initial encounter; J98.11 Atelectasis; E11.9 Type 2 diabetes mellitus without complications; E78.00 Pure hypercholesterolemia, unspecified; F17.210 Nicotine dependence, cigarettes, uncomplicated; H91.90 Unspecified hearing loss, unspecified ear; I10 Essential (primary) hypertension; E78.5 Hyperlipidemia, unspecified; F32.9 Major depressive disorder, single episode, unspecified; Z79.899 Other long term (current) drug therapy; Z79.4 Long term (current) use of insulin; W11.XXXA Fall on and from ladder, initial encounter
CPT/HCPCS: 36600; 70450; 71045; 71250; 71260; 72020; 72125; 72129; 72132; 72146; 72148; 74177; 80048; 82805; 82948; 85025; 85610; 85730; 86850; 86900; 86901; 93971; 94002; 94003; 94150; 94640; 94664; 94667; 94668; 96374; 96375; 96376; J1170; J1650; J1940; J2270; J2405; J7030; L0200; L0484; Q9967